=== PATIENT | male | born 1950 | race Caucasian/White ===

== ENCOUNTER → 2016-10-11 | Day surgery (SDC) | payer BC ==
[~2016-10-11] MED LIST: BUPR150T6 PO; CARV6.252 PO; CITA20TA5 PO; DOXA4TAB3 PO; FENTANYL PF 100 MCG/2 ML VIAL. IV PRN; GABA-586 PO; HYDR12.53 PO; HYDROMORPHONE 2 MG/ML VIAL. IV PRN; IBUP-1027 PO; IV RINGERS,LACTATED 1000ML 1,000 ML IV SCH; LIDOCAINE 1% 1 ML SYRINGE. ID PRN; LIDOCAINE 2% PF Vial for OR 5 ML VIAL. ONE; MORPHINE SULFATE 2 MG/ML DISP.SYRIN. IV PRN; NAPR500T3 PO; ONDANSETRON PF 4 MG/2 ML VIAL. IV PRN; PROCHLORPERAZINE 10 MG/2 ML VIAL. IV PRN; PROPOFOL 40 ML IV ONE; TEMA15CA PO
[2016-10-11 09:46] VITALS: BP 118/74
--- NOTE | 2016-10-14 13:28 | PATHOLOGY ---
PATHOLOGY REPORT * * * * * * * * FINAL DIAGNOSIS: Colon biopsy, transverse colon polyp: - Tubular adenoma. COMMENT: There is no high-grade dysplasia or evidence of malignancy. (CAROLYNM:; d/t: 10/14/16) REPORT ELECTRONICALLY SIGNED BY: Efra Hou M.D. DATE/TIME: 10/14/2016 13:28 * * * * * * * * GROSS PATHOLOGY: Received in formalin labeled "Ti Waller and transverse colon polyp," are 2 segments of coleman soft tissue measuring 0.8 x 0.4 x 0.2 and cm in aggregate dimensions and measuring 0.3 and 0.5 cm in maximum dimension. The specimen is submitted entirely in cassette A1. (TTL; 10/11/2016) INITIAL CPT CODE(S): A; 93742 Professional services performed [place] [facility] [place] [address] Technical services performed by [facility] at [address] [place] [address], [facility] [address], [place] [address]. SPECIMEN(S) RECEIVED: A.Transverse colon polyp CLINICAL HISTORY: Anemia, history of polyps PATIENT: TI WALLER /AGE: 5 1950 (Age: 65) PATIENT #: [id number] ALT CASE #: SPECIMEN COLLECTION DATE: 10/11/2016 SPECIMEN RECEIVED DATE: 10/11/2016 [facility] - [address] [place] [address] - PHONE: [phone] * * * END OF REPORT * * *
== END | disposition home or self-care (01) ==
LOC: ENDOS 08:28
PROVIDERS: ATTEND Internal Medicine Gastroenterology
DX: D12.3 Benign neoplasm of transverse colon (principal); K57.30 Diverticulosis of large intestine without perforation or abscess without bleeding; K64.8 Other hemorrhoids; K29.50 Unspecified chronic gastritis without bleeding; D50.9 Iron deficiency anemia, unspecified; J44.9 Chronic obstructive pulmonary disease, unspecified; I10 Essential (primary) hypertension; F32.9 Major depressive disorder, single episode, unspecified; D64.9 Anemia, unspecified; Z72.0 Tobacco use
CPT/HCPCS: 43235; 45385; G0500; 88305; J2704

== ENCOUNTER → 2016-11-14 | Outpatient (CLI) | payer BC ==
[2016-10-11 09:46] VITALS: BP 118/74
[~2016-11-14] MED LIST changes: -FENTANYL PF 100 MCG/2 ML VIAL. IV PRN; -HYDROMORPHONE 2 MG/ML VIAL. IV PRN; -IV RINGERS,LACTATED 1000ML 1,000 ML IV SCH; -LIDOCAINE 1% 1 ML SYRINGE. ID PRN; -LIDOCAINE 2% PF Vial for OR 5 ML VIAL. ONE; -MORPHINE SULFATE 2 MG/ML DISP.SYRIN. IV PRN; -ONDANSETRON PF 4 MG/2 ML VIAL. IV PRN; -PROCHLORPERAZINE 10 MG/2 ML VIAL. IV PRN; -PROPOFOL 40 ML IV ONE
[2016-11-14 17:31] LABS: BASO % 0 % (0-3); EOS % 2 % (0-3); HEMATOCRIT 42.7 % (39.0-53.0); LYMPH # 0.9 x10^3/uL (1.0-4.8); LYMPH % 8 % (24-48); MEAN CORPUSCULAR HEMOGLOBIN 28 pg (25-35); MEAN CORPUSCULAR HGB CONC 33 g/dL (31-37); MEAN CORPUSCULAR VOLUME 84 fL (79-100); MONO % 11 % (0-9); NEUT % 79 % (31-73); PLATELET COUNT 276 x10^3/uL (140-400); RED BLOOD COUNT 5.08 x10^6/uL (4.30-5.70); RED CELL DISTRIBUTION WIDTH 32.4 % (11.5-14.5)
[2016-11-14 17:42] LABS: ALBUMIN/GLOBULIN RATIO 0.7 (1.0-1.7); CREATININE 0.9 mg/dL (0.7-1.3); GFR 83.9; POTASSIUM 3.9 mmol/L (3.5-5.1); TOTAL BILIRUBIN 0.5 mg/dL (0.2-1.0); TOTAL PROTEIN 7.4 g/dL (6.4-8.2)
[2016-11-14 17:50] LABS: FREE T4 1.55 ng/dL (0.76-1.46)
[2016-11-14 18:06] LABS: PLT ESTIMATE ADEQUATE (ADEQUATE)
[2016-11-14 18:10] LABS: ANISOCYTOSIS MARKED
[2016-11-14 18:12] LABS: POIKILOCYTOSIS SLIGHT; POLYCHROMASIA SLIGHT
--- NOTE | 2016-11-15 07:25 | RAD ---
Chest, 2 views, 11/14/2016: History: Weight loss No previous chest radiographs are available at this time for comparison purposes. The heart is of normal size. The pulmonary vascularity is normal. There are patchy infiltrates in the right upper lobe. There is a small irregular parenchymal opacity in the left base in a retrocardiac location. There is flattening of the hemidiaphragm suggesting hyperexpansion due to COPD. An emphysematous bulla is noted anteriorly in the upper chest on the lateral view. No significant pleural fluid is seen. Mild spurring is evident in the spine. IMPRESSION: 1. Emphysema. 2. Right upper lobe infiltrate suggesting pneumonia. 3. Small irregular left basilar pulmonary opacity which may be due to pneumonia, scarring or a pulmonary neoplasm. 4. Comparison with previous chest radiographs if available would be helpful. CT scanning of the chest should be considered for further evaluation.
== END | disposition home or self-care (01) ==
LOC: RAD 16:46
PROVIDERS: ATTEND Internal Medicine Gastroenterology
DX: J43.9 Emphysema, unspecified (principal); R05 Cough; R63.4 Abnormal weight loss
CPT/HCPCS: 36415; 71020; 80053; 84439; 84443; 85007; 85027

== ENCOUNTER → 2016-12-04 | Outpatient (CLI) | payer BC ==
[2016-10-11 09:46] VITALS: BP 118/74
--- NOTE | 2016-12-04 11:58 | RAD ---
Indication abnormal chest x-ray. Axial images through the chest were obtained. No IV contrast was administered. Note is made of the plain film examination 11/14/2016 and the accompanying report. Imaging through the upper abdomen shows no acute finding. There is a low-density subcentimeter mass in the right lobe of liver. This likely reflects an incidental cyst. There are 2 well-defined masses seen associated with the left kidney each measuring approximately 2.5 cm in greatest dimension. The more dorsal mass almost certainly represents a cyst. The more ventral mass is hyperdense and may reflect a complicated or hyperdense cyst. Ultrasound is suggested for additional evaluation. A solid mass associated with the left kidney is not excluded. There is coronary artery calcification. There is no significant hilar adenopathy. There is mild mediastinal adenopathy. Definite pathologic mediastinal adenopathy is not seen. Blebs or bulla are seen in both lungs. There is slight pleural-parenchymal scarring in the right upper lobe. A dominant soft tissue mass is not seen in either lung. There is some pleural-parenchymal scarring at the left lung base accounting for the findings on plain film. An acute finding in the chest is not seen. IMPRESSION: Chronic changes in the chest. No dominant soft tissue mass or acute finding in the chest seen. At least 2 well defined masses associated with the left kidney. There are not completely characterized on the CT examination. Ultrasound is suggested for additional evaluation. PQRS Compliance Statement: One or more of the following individualized dose reduction techniques were utilized for this examination: 1. Automated exposure control 2. Adjustment of the mA and/or kV according to patient size 3. Use of iterative reconstruction technique
== END | disposition home or self-care (01) ==
LOC: CT 10:53
PROVIDERS: ATTEND Physician Assistant
DX: N28.89 Other specified disorders of kidney and ureter (principal)
CPT/HCPCS: 71250

== ENCOUNTER → 2017-04-10 | Outpatient (CLI) | payer BC ==
[2016-10-11 09:46] VITALS: BP 118/74
[~2017-04-10] MED LIST changes: -NAPR500T3 PO; +NAPR500T4 PO
--- NOTE | 2017-04-10 13:33 | KCIC ---
PQRS Compliance Statement: One or more of the following individualized dose reduction techniques were utilized for this examination: 1. Automated exposure control 2. Adjustment of the mA and/or kV according to patient size 3. Use of iterative reconstruction technique CT abdomen pelvis without contrast:04/10/2017 12:30 PM Indication: 66 years old Male. Epigastric pain. Weight loss, anemia and fatigue. Smoking history. Comparison Studies: None. Technique: Multiple axial images of the abdomen and pelvis were obtained. No intravenous contrast was administered. Coronal and sagittal reformats are provided. Findings: The lack of intravenous contrast limits evaluation of the solid abdominal organs. LUNG BASES: Lung bases are clear. Heart size is within normal limits. ABDOMEN: LIVER: There is a 9 mm hypodense lesion in the right hepatic lobe compatible with a simple cyst. No suspicious hepatic lesions are identified. SPLEEN: Unremarkable. ADRENAL GLANDS: Within normal limits. PANCREAS: Unremarkable. GALLBLADDER: No calcified gallstones. BILE DUCTS: Normal caliber. VASCULATURE: There are mild atherosclerotic changes of the abdominal aorta. There is ectasia of infrarenal abdominal aorta measuring 2.4 x 1.9 cm. RETROPERITONEUM: Within normal limits. KIDNEYS: There is a 2.4 x 2.2 cm mildly hyperdense mass arising from the midpole of the left kidney anteriorly. There is a 2.8 x 2.4 cm simple cyst exophytic from the superior pole of the left kidney. There is a 2.4 x 1.9 cm exophytic cyst arising from the midpole the left kidney. There is a endophytic 1.2 x 0.7 cm cyst in the midpole the right kidney. There is a hypodense cystic lesion arising from the inferior pole the right kidney measuring 1.4 x 1.2 cm, indeterminate. BOWEL: Nondilated without adjacent inflammatory changes. Appendix is normal in appearance. There is diverticulosis coli. No evidence for diverticulitis. PERITONEUM: No ascites. No fluid collection. ABDOMINAL WALL: Within normal limits. PELVIS: PELVIC ORGANS: No pelvic masses. URINARY BLADDER: Within normal limits. LYMPH NODES: No lymphadenopathy in the abdomen or pelvis. BONES: No acute fracture. No suspicious osseous lesions are identified. IMPRESSION: 1. There is an indeterminate mildly hyperdense mass involving the anterior mid pole of the left kidney measuring 2.4 x 2.2 cm. This may represent a solid renal mass such as renal cell carcinoma versus a cyst complicated by hemorrhage or protein. Further evaluation with renal mass protocol CT is recommended. There is an additional indeterminate mass arising from the inferior pole of the right kidney measuring 1.4 x 1.2 cm. 2. Bilateral simple appearing renal cysts, as detailed above. 3. No pathologically enlarged lymph nodes identified in the abdomen or pelvis. 4. Diverticulosis without adjacent inflammatory changes to suggest diverticulitis. 5. Mild to moderate atherosclerotic calcification of the abdominal aorta with infrarenal abdominal aortic ectasia. Electronically signed by: Lana Jordan MD (04/10/2017 1:27 PM) [place] [id number]
== END | disposition home or self-care (01) ==
LOC: KCIC CT 12:30
PROVIDERS: ATTEND Physician Assistant
DX: N28.1 Cyst of kidney, acquired (principal); N28.89 Other specified disorders of kidney and ureter; I77.811 Abdominal aortic ectasia; I70.0 Atherosclerosis of aorta; K57.90 Diverticulosis of intestine, part unspecified, without perforation or abscess without bleeding; D64.9 Anemia, unspecified; R63.4 Abnormal weight loss; R53.83 Other fatigue; Z87.891 Personal history of nicotine dependence
CPT/HCPCS: 74176

== ENCOUNTER → 2017-04-17 | Outpatient (CLI) | payer BC ==
[2016-10-11 09:46] VITALS: BP 118/74
--- NOTE | 2017-04-17 14:33 | KCIC ---
Examination: Ultrasound kidneys HISTORY: History of abnormal CT scan COMPARISON: None available FINDINGS: The right kidney measures 11.0 x 5.3 x 5.5 cm. There is a cystic structure identified measuring 9 mm identified in the lower pole of the right kidney probably a cyst. The left kidney measures 11.4 x 5.6 x 5.2 cm There is a septated questionable cystic structure measuring 4.7 cm identified in the left kidney. There is a complex exophytic cyst measuring 2.8 cm identified in the superior pole the left kidney. There is a 2.1 cm exophytic complex cystic structure identified in the midpole the left kidney. There is focal thickening of the urinary bladder wall with a hyperechoic region measuring 2.3 cm in the right anterolateral wall. The prostate is enlarged measuring 3.7 x 3.9 x 5.9 cm. IMPRESSION: 1. Complex appearing cystic echogenicities identified in the left kidney. Recommend CT urogram for further evaluation. If IV and enteric contrast cannot be administered 10 MRI may be useful for further evaluation. 2. Focal hyperechoic thickened appearance of the the urinary bladder without vascular flow, nonspecific, could be mass or thrombus. Cystoscopic evaluation is recommended. 3. Probable right renal cyst. 4. Prostatomegaly. Electronically signed by: Ciro Nye MD (04/17/2017 2:30 PM) [id number]
== END | disposition home or self-care (01) ==
LOC: KCIC US 10:25
PROVIDERS: ATTEND Physician Assistant
DX: N40.0 Benign prostatic hyperplasia without lower urinary tract symptoms (principal)
CPT/HCPCS: 76770

== ENCOUNTER → 2017-05-24 | Outpatient (CLI) | payer BC ==
[2016-10-11 09:46] VITALS: BP 118/74
== END | disposition home or self-care (01) ==
LOC: SLPLAB 18:30
PROVIDERS: ATTEND Physician Assistant
DX: J44.9 Chronic obstructive pulmonary disease, unspecified (principal); G47.33 Obstructive sleep apnea (adult) (pediatric); R06.83 Snoring
CPT/HCPCS: 95810

== ENCOUNTER 2017-07-05 11:35 | Inpatient (IN) | payer BC ==
[2017-07-05 12:24] LABS: BASO # 0.1 x10^3/uL (0.0-0.2); BASO % 1 % (0-3); EOS % 0 % (0-3); HEMATOCRIT 42.6 % (39.0-53.0); HEMOGLOBIN 14.3 g/dL (13.0-17.5); LYMPH # 0.8 x10^3/uL (1.0-4.8); LYMPH % 5 % (24-48); MEAN CORPUSCULAR HEMOGLOBIN 30 pg (25-35); MEAN CORPUSCULAR HGB CONC 34 g/dL (31-37); MEAN CORPUSCULAR VOLUME 91 fL (79-100); MONO % 6 % (0-9); NEUT # 15.5 x10^3uL (1.8-7.7); NEUT % 89 % (31-73); PLATELET COUNT 300 x10^3/uL (140-400); RED BLOOD COUNT 4.69 x10^6/uL (4.30-5.70); RED CELL DISTRIBUTION WIDTH 14.2 % (11.5-14.5); WHITE BLOOD COUNT 17.4 x10^3/uL (4.0-11.0)
[2017-07-05 12:25] LABS: ADD MAN DIFF? YES
[2017-07-05 12:38] LABS: INR 0.9 (0.8-1.1); PROTHROMBIN TIME PATIENT 11.6 SEC (11.7-14.0)
[2017-07-05] MEDS: IV NORMAL SALINE 1000ML BAG 1,000 ML IV ×3 (12:41→14:45)
[2017-07-05] MEDS: fentaNYL PF VIAL 100 MCG/2 ML VIAL IV ×2 (12:42→18:00)
[2017-07-05 12:44] LABS: ANION GAP 12 (6-14); BLOOD UREA NITROGEN 12 mg/dL (8-26); CALCIUM 8.9 mg/dL (8.5-10.1); CARBON DIOXIDE 26 mmol/L (21-32); CHLORIDE 95 mmol/L (98-107); CREATININE 0.9 mg/dL (0.7-1.3); GFR 83.9; GLUCOSE 154 mg/dL (70-99); POTASSIUM 3.7 mmol/L (3.5-5.1); SODIUM 133 mmol/L (136-145)
[2017-07-05 12:46] LABS: INFLUENZA A PATIENT NEGATIVE (NEGATIVE); INFLUENZA B PATIENT NEGATIVE (NEGATIVE); OBC FLU VALID
[2017-07-05 12:50] LABS: ALBUMIN 3.7 g/dL (3.4-5.0); ALK PHOS 77 U/L (46-116); ALT (SGPT) 18 U/L (16-63); AST (SGOT) 15 U/L (15-37); DIRECT BILIRUBIN 0.1 mg/dL (0.0-0.2); LIPASE 70 U/L (73-393); MAGNESIUM 1.7 mg/dL (1.8-2.4); TOTAL BILIRUBIN 0.3 mg/dL (0.2-1.0); TOTAL PROTEIN 7.4 g/dL (6.4-8.2)
[2017-07-05 12:57] LABS: THYROID STIM HORMONE (TSH) 1.703 uIU/mL (0.358-3.74)
[2017-07-05 12:59] LABS: NT-PRO BNP 194 pg/mL (0-124); TROPONINI < 0.017 ng/mL (0.000-0.055)
[2017-07-05 12:59] LABS: CKMB MASS < 0.5 ng/mL (0.0-3.6); CREATINE KINASE 65 U/L (39-308)
[2017-07-05 13:01] LABS: % BANDS 28 % (0-9); % LYMPHS 4 % (24-48); % MONOS 6 % (0-10); % SEGS 62 % (35-66)
[2017-07-05 13:02] LABS: PLT ESTIMATE ADEQUATE (ADEQUATE); TARGET CELLS FEW
[2017-07-05] MEDS: IOHEXOL 300 MG/ML 100ML VIAL. IV (13:22)
[2017-07-05] MEDS ORDERED: CONTRAST GIVEN MC (13:30)
[2017-07-05 14:14] LABS: LACTIC ACID 1.2 mmol/L (0.4-2.0)
[2017-07-05 14:26] LABS: BILIRUBIN,URINE NEGATIVE (NEG); CLARITY,URINE CLEAR; COLOR,URINE YELLOW; GLUCOSE,URINE NEGATIVE (NEG); NITRITE,URINE NEGATIVE (NEG); PH,URINE 6.5; PROTEIN,URINE 30 mg/dL (NEG-TRACE); UROBILINOGEN,URINE 0.2 mg/dL (0.2 mg/dL)
[2017-07-05] MEDS ORDERED: ONDANSETRON PF 4 MG/2 ML VIAL. IV (14:30)
[2017-07-05] MEDS ORDERED: levOFLOXacin PER PHARMACY. MC (14:30)
[2017-07-05] MEDS: ACETAMINOPHEN 500 MG TABLET PO (14:32)
[2017-07-05 14:33] LABS: RBC,URINE >40 /HPF (0-2); SQUAMOUS EPITHELIAL CELL,UR MOD /LPF; WBC,URINE OCC /HPF (0-4)
[2017-07-05 14:36] LABS: BARBITURATES NEG (NEG); BENZODIAZEPINES NEG (NEG); CANNABINOIDS POS (NEG); COCAINE NEG (NEG); METHADONE NEG (NEG); OPIATES NEG (NEG); PHENCYCLIDINE NEG (NEG)
[2017-07-05 14:38] LABS: AMPHETAMINE/METHAMPHETAMINE NEG (NEG); ETHANOL, URINE NEG (NEG)
[2017-07-05] MEDS: predniSONE 10 MG TABLET PO (15:02)
[2017-07-05] MEDS: NICOTINE 21MG PATCH. TD (15:03)
[2017-07-05] MEDS: IPRATRPIUM/ALBUTEROL 0.5/2.5MG 3 ML NEBU. NEB ×2 (18:15→22:20)
[2017-07-05] MEDS ORDERED: IPRATRPIUM/ALBUTEROL 0.5/2.5MG 3 ML NEBU. NEB (20:00)
[2017-07-05] MEDS ORDERED: INFLUENZA VAX SCREEN BY RX. MC (20:30)
[2017-07-05] MEDS: traZODone 100 MG TABLET. PO ×2 (21:00→21:35)
[2017-07-05] MEDS: LACTOBACILLUS RHAMNOSUS GG 1 CAPSULE. PO (21:36)
[2017-07-05] MEDS: hydrOXYzine PAMOATE 25 MG CAPSULE PO (21:36)
[2017-07-05] MEDS: GABAPENTIN 300 MG CAPSULE. PO (21:36)
[2017-07-05 21:40] LABS: TROPONINI < 0.017 ng/mL (0.000-0.055)
[2017-07-05] MEDS: BUDESONIDE 0.5 MG/2 ML NEBU. NEB (22:20)
[2017-07-06 05:31] LABS: ADD MAN DIFF? NO
[2017-07-06 06:05] LABS: BASO % 0 % (0-3); EOS % 0 % (0-3); HEMATOCRIT 39.4 % (39.0-53.0); LYMPH # 0.7 x10^3/uL (1.0-4.8); LYMPH % 4 % (24-48); MEAN CORPUSCULAR HEMOGLOBIN 31 pg (25-35); MEAN CORPUSCULAR HGB CONC 33 g/dL (31-37); MEAN CORPUSCULAR VOLUME 94 fL (79-100); MONO # 0.9 x10^3/uL (0.0-1.1); MONO % 5 % (0-9); NEUT # 15.9 x10^3uL (1.8-7.7); NEUT % 91 % (31-73); PLATELET COUNT 282 x10^3/uL (140-400); RED BLOOD COUNT 4.21 x10^6/uL (4.30-5.70); RED CELL DISTRIBUTION WIDTH 14.7 % (11.5-14.5); WHITE BLOOD COUNT 17.5 x10^3/uL (4.0-11.0)
[2017-07-06 06:50] LABS: ANION GAP 16 (6-14); BLOOD UREA NITROGEN 10 mg/dL (8-26); CALCIUM 8.2 mg/dL (8.5-10.1); CARBON DIOXIDE 24 mmol/L (21-32); CHLORIDE 99 mmol/L (98-107); CREATININE 0.8 mg/dL (0.7-1.3); GFR 96.1; GLUCOSE 115 mg/dL (70-99); POTASSIUM 3.1 mmol/L (3.5-5.1); SODIUM 139 mmol/L (136-145)
[2017-07-06 06:55] LABS: TROPONINI < 0.017 ng/mL (0.000-0.055)
[2017-07-06] MEDS ORDERED: PANTOPRAZOLE 40 MG TABLET.DR. PO (07:30)
[2017-07-06] MEDS: PANTOPRAZOLE 40 MG TABLET.DR. PO (08:01)
[2017-07-06] MEDS: CARVEDILOL 6.25 MG TABLET. PO ×2 (08:02→17:46)
[2017-07-06] MEDS: BUDESONIDE 0.5 MG/2 ML NEBU. NEB ×2 (08:29→19:49)
[2017-07-06] MEDS: IPRATRPIUM/ALBUTEROL 0.5/2.5MG 3 ML NEBU. NEB ×4 (08:29→23:38)
[2017-07-06] MEDS ORDERED: NON FORMULARY ITEM (Tiotropium Bromide (Spiriva) 1 CAP) IH (09:00)
[2017-07-06] MEDS ORDERED: NON FORMULARY ITEM (Fluticasone/Vilanterol (Breo Ellipta 100-25 Mcg Inh) 1 PUFF) IH (09:00)
[2017-07-06] MEDS: NICOTINE 21MG PATCH. TD (09:13)
[2017-07-06] MEDS: hydrOXYzine PAMOATE 25 MG CAPSULE PO ×3 (09:14→20:45)
[2017-07-06] MEDS: GABAPENTIN 300 MG CAPSULE. PO ×3 (09:14→20:45)
[2017-07-06] MEDS: LACTOBACILLUS RHAMNOSUS GG 1 CAPSULE. PO ×2 (09:14→20:46)
[2017-07-06] MEDS: DULoxetine HCL 30 MG CAPSULE.DR PO (09:14)
[2017-07-06] MEDS: hydroCHLOROthiazide 12.5 MG CAPSULE PO (09:14)
[2017-07-06] MEDS: buPROPion XL 150 MG TAB.ER.24H. PO (09:14)
[2017-07-06] MEDS: FLU VACC QS2017-18 (36MOS+)/PF 0.5 ML SYRINGE. VAX IM (09:18)
[2017-07-06] MEDS: cefTRIAXone IV Push 1 GM VIAL. IVP (14:45)
[2017-07-06] MEDS: traZODone 100 MG TABLET. PO ×2 (20:46→20:47)
[2017-07-07 05:25] LABS: ADD MAN DIFF? NO
[2017-07-07 05:29] LABS: BASO % 0 % (0-3); EOS % 0 % (0-3); HEMATOCRIT 35.6 % (39.0-53.0); HEMOGLOBIN 11.6 g/dL (13.0-17.5); LYMPH # 1.5 x10^3/uL (1.0-4.8); LYMPH % 13 % (24-48); MEAN CORPUSCULAR HEMOGLOBIN 30 pg (25-35); MEAN CORPUSCULAR HGB CONC 33 g/dL (31-37); MEAN CORPUSCULAR VOLUME 92 fL (79-100); MONO % 8 % (0-9); NEUT # 9.8 x10^3uL (1.8-7.7); NEUT % 79 % (31-73); PLATELET COUNT 278 x10^3/uL (140-400); RED BLOOD COUNT 3.86 x10^6/uL (4.30-5.70); RED CELL DISTRIBUTION WIDTH 14.1 % (11.5-14.5); WHITE BLOOD COUNT 12.4 x10^3/uL (4.0-11.0)
[2017-07-07] MEDS: IPRATRPIUM/ALBUTEROL 0.5/2.5MG 3 ML NEBU. NEB ×3 (08:28→23:20)
[2017-07-07] MEDS: BUDESONIDE 0.5 MG/2 ML NEBU. NEB (08:29)
[2017-07-07] MEDS ORDERED: TEMAZEPAM 15 MG CAPSULE PO (08:30)
[2017-07-07] MEDS: buPROPion XL 150 MG TAB.ER.24H. PO (08:49)
[2017-07-07] MEDS: hydrOXYzine PAMOATE 25 MG CAPSULE PO ×3 (08:49→21:00)
[2017-07-07] MEDS: GABAPENTIN 300 MG CAPSULE. PO ×3 (08:49→20:59)
[2017-07-07] MEDS: PANTOPRAZOLE 40 MG TABLET.DR. PO (08:49)
[2017-07-07] MEDS: LACTOBACILLUS RHAMNOSUS GG 1 CAPSULE. PO ×2 (08:49→21:00)
[2017-07-07] MEDS: CARVEDILOL 6.25 MG TABLET. PO ×2 (08:50→18:14)
[2017-07-07] MEDS: DULoxetine HCL 30 MG CAPSULE.DR PO (08:50)
[2017-07-07] MEDS: CITALOPRAM 20 MG TABLET. PO (08:57)
[2017-07-07] MEDS: ACETAMINOPHEN 325 MG TABLET. PO ×4 (08:57→21:00)
[2017-07-07] MEDS: hydroCHLOROthiazide 12.5 MG CAPSULE PO (09:00)
[2017-07-07 10:59] LABS: PROSTATE SPECIFIC ANTIGEN 11.21 ng/mL (0.00-4.00)
[2017-07-07] MEDS: methylPREDNISolone SOD SUCC PF 40 MG/ML VIAL. IV ×2 (14:03→21:01)
[2017-07-07] MEDS: PNEUMOC CONJ VACC 23-VALENT 0.5 ML VIAL. VAX IM (14:13)
[2017-07-07] MEDS: traZODone 100 MG TABLET. PO (20:59)
[2017-07-07] MEDS: DOXAZOSIN MESYLATE 4 MG TABLET. PO (21:00)
[2017-07-08] MEDS: IPRATRPIUM/ALBUTEROL 0.5/2.5MG 3 ML NEBU. NEB (07:46)
[2017-07-08] MEDS ORDERED: AZITHROMYCIN 250 MG TABLET. PO (08:00)
[2017-07-08] MEDS: LACTOBACILLUS RHAMNOSUS GG 1 CAPSULE. PO (09:40)
[2017-07-08] MEDS: predniSONE 20 MG TABLET PO (09:40)
[2017-07-08] MEDS: CARVEDILOL 6.25 MG TABLET. PO (09:41)
[2017-07-08] MEDS: hydroCHLOROthiazide 12.5 MG CAPSULE PO (09:41)
[2017-07-08] MEDS: CITALOPRAM 20 MG TABLET. PO (09:41)
[2017-07-08] MEDS: buPROPion XL 150 MG TAB.ER.24H. PO (09:41)
[2017-07-08] MEDS: ACETAMINOPHEN 325 MG TABLET. PO (09:41)
[2017-07-08] MEDS: GABAPENTIN 300 MG CAPSULE. PO (09:41)
[2017-07-08] MEDS: DULoxetine HCL 30 MG CAPSULE.DR PO (09:41)
[2017-07-08] MEDS: hydrOXYzine PAMOATE 25 MG CAPSULE PO (09:41)
[2017-07-08] MEDS: PANTOPRAZOLE 40 MG TABLET.DR. PO (09:41)
== END 2017-07-08 11:29 | disposition home or self-care (01) | DRG 871 ==
LOC: ER 11:35 → 5 SOUTH 14:15
DX: A41.9 Sepsis, unspecified organism (principal); J15.9 Unspecified bacterial pneumonia; C61 Malignant neoplasm of prostate; F17.210 Nicotine dependence, cigarettes, uncomplicated; I10 Essential (primary) hypertension; F12.90 Cannabis use, unspecified, uncomplicated; R31.0 Gross hematuria
CPT/HCPCS: 36415; 71045; 71260; 74177; 80048; 80076; 80307; 81001; 82553; 83605; 83690; 83735; 83880; 84443; 84484; 85007; 85025; 85610; 87040; 87804; 87804-59; 90732; 93005; 94640; 96361; 96365; 96368; 96375; 99285-25; G0103; J0690; J0696; J1956; J2920; J3010; J7030; J7512; J7620; J7626; Q0177; Q9967

== ENCOUNTER → 2017-09-04 | Outpatient (CLI) | payer BC | END | disposition home or self-care (01) | LOC: NM 10:00 | DX: C61 Malignant neoplasm of prostate (principal) | CPT/HCPCS: 78306; 96374; A9503 ==

== ENCOUNTER → 2017-09-24 | Outpatient (CLI) | payer BC | END | disposition home or self-care (01) | LOC: US 10:05 | DX: C61 Malignant neoplasm of prostate (principal); I10 Essential (primary) hypertension; J44.9 Chronic obstructive pulmonary disease, unspecified; K21.9 Gastro-esophageal reflux disease without esophagitis; F32.9 Major depressive disorder, single episode, unspecified; C80.1 Malignant (primary) neoplasm, unspecified | CPT/HCPCS: 55876; 77387 ==

== ENCOUNTER → 2017-09-29 | Outpatient (CLI) | payer BC | END | disposition home or self-care (01) | LOC: RAD 11:15 | DX: J43.8 Other emphysema (principal); R91.8 Other nonspecific abnormal finding of lung field | CPT/HCPCS: 71046 ==

== ENCOUNTER → 2017-10-08 | Outpatient (CLI) | payer BC | END | disposition home or self-care (01) | LOC: KCIC CT 12:18 | DX: R05 Cough (principal); R91.1 Solitary pulmonary nodule; R06.02 Shortness of breath; J44.9 Chronic obstructive pulmonary disease, unspecified; Z87.01 Personal history of pneumonia (recurrent); Z87.891 Personal history of nicotine dependence | CPT/HCPCS: 71250 ==

== ENCOUNTER → 2018-02-10 | Outpatient (CLI) | payer BC ==
[2017-07-08 10:30] VITALS: BP 126/91
[~2018-02-10] MED LIST changes: +ACET160S PO; +ACET325T9 PO; +BREO ELLIPTA 11 EACH IH; -CITA20TA5 PO; +CITA20TA6 PO; +DULO60CA6 PO; +HYDR25TA PO; +NAPR-514 PO; -NAPR500T4 PO; +OMEP40CA5 PO; +PANT40TA5 PO; +TAMS0.4C97 PO; +TIOT18CA IH; +TRAZ-86 PO
--- NOTE | 2018-02-10 14:20 | RAD ---
EXAM: CT chest without IV contrast CLINICAL HISTORY: LUNG NODULE COMPARISON: 10/08/2017, 07/05/2017 TECHNIQUE: CT of the chest without intravenous contrast. Coronal and sagittal reformatted images were generated. PQRS compliance Statement One or more of the following individualized dose reduction techniques were utilized for this study: 1. Automated exposure control 2. Adjustment of the mA and/or kV according to patient size 3. Use of iterative reconstruction technique FINDINGS: Lack of intravenous contrast limits evaluation of solid organs, vasculature, and lymph nodes. The heart is enlarged. Coronary artery calcifications are seen. No pericardial effusion. Evaluation for mediastinal and hilar lymphadenopathy is limited on this noncontrast exam. Within these constraints no definite mediastinal or hilar lymphadenopathy by size criteria. Prominent mediastinal pretracheal lymph node measures 1.8 x 0.8 cm. No axillary lymphadenopathy. No pleural effusion or pneumothorax. Bilateral emphysematous changes are seen. Lingular patchy and linear opacities likely atelectasis/scarring. A 4 mm left upper lobe lung nodule is seen, previously 7 mm. Additional previously seen 4 mm lung nodules are grossly stable. Some of the 2-3 mm lung nodules previously seen have since resolved. The previously seen 5 mm left upper lobe lung nodule now measures 3 mm. Hypodense lesions within the liver are grossly unremarkable. Multiple left renal lesions are seen, grossly stable in size and incompletely assessed on this noncontrast exam. Bones: Multilevel degenerative changes of the spine are seen. No definite aggressive osseous lesion is identified. IMPRESSION: 1. The previously seen left lung nodules are grossly stable to decreased in size, recommend follow-up in 6 months. 2. Multiple renal and hepatic lesions are again seen. Electronically signed by: Franck Lewis MD (02/10/2018 2:16 PM) [facility]
== END | disposition home or self-care (01) ==
LOC: CT 11:56
PROVIDERS: ATTEND Radiology Radiation Oncology
DX: R91.8 Other nonspecific abnormal finding of lung field (principal); K76.9 Liver disease, unspecified; J43.9 Emphysema, unspecified; I25.10 Atherosclerotic heart disease of native coronary artery without angina pectoris; I51.7 Cardiomegaly; Z87.891 Personal history of nicotine dependence
CPT/HCPCS: 71250

== ENCOUNTER → 2018-08-11 | Outpatient (CLI) | payer BC ==
[2017-07-08 10:30] VITALS: BP 126/91
[~2018-08-11] MED LIST changes: +CARV6.2511 PO; -CARV6.252 PO; -GABA-586 PO; +GABA300C18 PO; -HYDR12.53 PO; +HYDR12.575 PO
--- NOTE | 2018-08-11 15:43 | RAD ---
Examination: CT CHEST WO CONTRAST History: Pulmonary nodules Comparison/Correlation: 02/10/2018 CT chest without contrast, 10/08/2017 CT chest without contrast, 07/05/2017 CT chest abdomen pelvis with contrast, 12/04/2016 CT chest without contrast Findings: Axial images of chest were obtained without contrast. Sagittal and coronal reformatted images were provided Centrilobular emphysema is present. No enlarged thoracic lymph nodes. Lingular linear atelectasis or scarring is present. No suspicious pulmonary nodule or mass lesion. There is a punctate nodule involving the right upper lobe on axial image 85 of series 2 and this has remained stable. It is noncalcified. No pleural or pericardial effusion. No pneumothorax. Left renal cysts are present. Hyperdense lesion at the left renal upper pole anteriorly likely representing a hemorrhagic cyst has remained stable. Impression: No suspicious pulmonary nodule. No infiltrate. Emphysema. Electronically signed by: Narayan Read MD (08/11/2018 3:40 PM) [id number]
== END | disposition home or self-care (01) ==
LOC: CT 12:12
PROVIDERS: ATTEND Radiology Radiation Oncology
DX: J43.2 Centrilobular emphysema (principal); N28.1 Cyst of kidney, acquired; R91.1 Solitary pulmonary nodule
CPT/HCPCS: 71250

== ENCOUNTER → 2019-02-19 | Outpatient (CLI) | payer BC, MEDICAID ==
[2017-07-08 10:30] VITALS: BP 126/91
[~2019-02-19] MED LIST changes: -PANT40TA5 PO; +PANT40TA77 PO
--- NOTE | 2019-02-19 12:55 | RAD ---
EXAM: Chest CT without intravenous contrast. HISTORY: Chronic cough. Greater than 50 pack year smoking history. Weight loss. TECHNIQUE: Computed tomographic images of the chest were obtained without contrast. Multiplanar reformatting was performed. *One or more of the following individualized dose reduction techniques were utilized for this examination: 1. Automated exposure control. 2. Adjustment of the mA and/or kV according to patient size. 3. Use of iterative reconstruction technique. COMPARISON: 08/11/2018, 02/10/2018, 10/08/2017. FINDINGS: There is bilateral upper lobe predominant bullous emphysema. There is no pneumothorax or pleural effusion. There is no infiltrate. There is a 3 mm nodule within the posterior left upper lobe (series 3, image 24), corresponding with location of a spiculated nodule measuring 7 mm on the study dated 10/08/2017. There is faint subcentimeter groundglass opacity within the left upper lobe (series 3, image 18), corresponding with location of a 7 mm [address]ule on the CT dated 10/08/2017. There is a 5 mm nodule within the lateral right upper lobe (series 3, image 29), minimally decreased compared to the prior study dated 10/08/2017. The remainder of the previously demonstrated nodules and groundglass opacities demonstrate no clear correlate on the current exam. No new nodule is seen. The heart is normal in size. There is coronary artery atherosclerosis. There are stable nonspecific mediastinal and hilar lymph nodes. These are not pathologically enlarged. There is stable anterior pericardial thickening or fluid. There is lingular and right middle lobe pleural parenchymal scarring or atelectasis. There are multiple left renal cysts. There is a 2.5 cm lesion within the upper pole the left kidney with attenuation greater than simple fluid, likely a hemorrhagic cyst. There is adrenal gland thickening without a discrete nodule. There is no suspicious osseous lesion. There is a 1.5 cm hypodense lesion within the right hepatic lobe. IMPRESSION: 1. Tiny bilateral pulmonary nodules, the largest of which measures 5 mm within the lateral right upper lobe. These are decreased in size and number compared to a CT dated 10/08/2017, favoring a benign postinfectious or postinflammatory etiology. No new nodule is seen. 2. Bullous emphysema. 3. Multiple right renal cysts, one of which within the upper pole demonstrates attenuation greater than simple fluid and may be a hemorrhagic cyst. These are stable or decreased in size compared to prior studies. 4. Stable small hypodense lesion within the right hepatic lobe. There are additional hypodense lesions on prior studies which demonstrate no clear correlate on the current exam, possibly obscured due to the absence of contrast. In the absence of known malignancy, these are likely cysts or hemangiomas. Fleischner Society recommendations (Radiology 2017): SOLID NODULES Solitary solid nodule <6 mm - low-risk patient: no routine follow-up required - high-risk patient: optional CT at 12 months (particularly with suspicious nodule morphology and/or upper lobe location) Solitary solid nodule 6-8 mm - low-risk patient: CT at 6-12 months, then consider CT at 18-24 months - high risk patient: CT at 6-12 months, then if persistent CT at 18-24 months Solitary solid nodule >8 mm - consider CT at 3 months, PET/CT, or tissue sampling Multiple solid nodules <6 mm - low-risk patient: no routine follow-up required - high-risk patient: optional CT at 12 months Multiple solid nodules >6 mm - low-risk patient: CT at 3-6 months, then consider CT at 18-24 months - high risk patient: CT at 3-6 months, then if persistent CT at 18-24 months SUBSOLID NODULES Solitary ground glass nodule <6 mm - no routine follow-up required Solitary ground glass nodule > or = 6 mm - CT at 6-12 months, then if persistent CT every 2 years until 5 years Solitary part solid nodule > or = 6mm - CT at 3-4 months, the if persistent and solid component remains <6 mm, annual CT until 5 years Multiple subsolid nodules <6 mm - CT at 3-6 months, then if stable consider CT at 2 and 4 years in high risk patients Multiple subsolid nodules > or = 6 mm - CT at 3-6 months, then subsequent management based on the most suspicious nodule(s) Electronically signed by: Munira Trivedi MD (02/19/2019 12:52 PM) [place] [id number]
== END | disposition home or self-care (01) ==
LOC: CT 12:00
PROVIDERS: ATTEND Family Medicine
DX: J43.8 Other emphysema (principal); R91.8 Other nonspecific abnormal finding of lung field; I25.10 Atherosclerotic heart disease of native coronary artery without angina pectoris; N28.1 Cyst of kidney, acquired; K76.9 Liver disease, unspecified; Z87.891 Personal history of nicotine dependence
CPT/HCPCS: 71250

== ENCOUNTER 2019-04-18 10:23 | Emergency (ER) | payer MEDICARE, MEDICAID ==
[~2019-04-18] VITALS: Ht 175.3 cm; Wt 57.2 kg
[~2019-04-18 10:23] MED LIST changes: +OMEP40CA45 PO; -OMEP40CA5 PO
[2019-04-18 11:15] VITALS: BP 161/87
--- NOTE | 2019-04-18 11:21 | PHYS DOC ---
Past Medical History Past Medical History: Arrhythmia, Cancer, Hypertension, Other Additional Past Medical Histor: PROSTATE CANCER (JAN SANDY APRN) Past Surgical History: No Surgical History (JAN SANDY APRN) Alcohol Use: Occasionally Drug Use: None (JAN SANDY APRN) Adult General Chief Complaint Chief Complaint: Neck Pain HPI HPI Patient is a 68 year old male, accompanied by son, who presents to the emergency department with complaints of neck stiffness and tenderness since awakening yesterday. Patient states that symptoms gradually resolved throughout the day yesterday however today he woke up again with the neck stiffness and pain. Patient rates his pain a 10 out of 10 with movement. He denies any recent injury or fall. Patient denies any numbness, tingling, or weakness of his upper extremities. He states the only alleviating factor is if he sits still. (JAN SANDY APRN) Review of Systems Review of Systems Constitutional: Denies fever or chills [] Eyes: Denies change in visual acuity, redness, or eye pain [] HENT: Denies nasal congestion or sore throat [] Respiratory: Denies cough or shortness of breath [] Cardiovascular: No additional information not addressed in HPI [] GI: Denies abdominal pain, nausea,or vomiting Musculoskeletal: Denies mid or low back pain; see HPI Integument: Denies rash or skin lesions [] Neurologic: Denies headache, focal weakness or sensory changes [] Complete systems were reviewed and found to be within normal limits, except as documented in this note. (JAN SANDY APRN) Current Medications Current Medications Current Medications Medications (Trade) Dose Ordered Sig/Marisol Start Time Stop Time Status Last Admin Dose Admin Ketorolac Tromethamine (Toradol Im) 30 mg 1X ONCE 04/18/19 11:30 04/18/19 11:35 DC 04/18/19 11:55 30 MG Orphenadrine Citrate (Norflex) 60 mg 1X ONCE 04/18/19 11:30 04/18/19 11:35 DC 04/18/19 11:52 60 MG Prednisone (Prednisone) 50 mg 1X ONCE 04/18/19 11:30 04/18/19 11:35 DC 04/18/19 11:50 50 MG (MARCO MCCONNELL MD) Allergies Allergies Allergies Coded Allergies Type Severity Reaction Last Updated Verified No Known Drug Allergies 10/11/16 No (MARCO MCCONNELL MD) Physical Exam Physical Exam Constitutional: Well developed, well nourished, no acute distress, non-toxic appearance. [] HENT: Normocephalic, atraumatic, bilateral external ears normal, nose normal. [] Eyes: PERRLA, EOMI, conjunctiva normal, no discharge. [] Neck: supple, no stridor; bilateral cervical paraspinal TTP, no bony cervical tenderness, no deformity Cardiovascular:Heart rate regular rhythm Lungs & Thorax: Bilateral breath sounds clear to auscultation [] Skin: Warm, dry, no erythema, no rash. [] Extremities: No cyanosis, no clubbing, ROM intact, no edema. 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 [] Psychologic: Affect normal, judgement normal, mood normal. [] (JAN SANDY APRN) Current Patient Data Vital Signs Vital Signs Date Time Temp Pulse Resp B/P (MAP) Pulse Ox O2 Delivery O2 Flow Rate FiO2 04/18/19 11:15 97.8 106 16 161/87 (111) 96 Room Air 97.8 (MARCO MCCONNELL MD) EKG EKG [] (JAN SANDY APRN) Radiology/Procedures Radiology/Procedures [] (JAN SANDY APRN) Course & Med Decision Making Course & Med Decision Making Pertinent Labs and Imaging studies reviewed. (See chart for details) dx:acute cervical strain Pt was given 30 mg of IM toradol, 60 mg of norflex, and 50 mg of PO prednisone. Encouraged pt to drink plenty of water. Apply heat or ice to sore area as needed for comfort. Follow up with PCP in 1-2 days, return to the ER if symptoms worsen. Prescriptions for prednisone and norflex written. Patient verbalized an understanding of home care, medications, follow-up, and return to ED instructions and was in agreement with the plan of care. [] (JAN SANDY APRN) Course & Med Decision Making Staff Physician Addendum: I was working in the ER during the course of this patient's visit. I was available for consultation as needed, but I was not directly involved in the care of this patient. (MARCO MCCONNELL MD) Dragon Disclaimer Dragon Disclaimer This electronic medical record was generated, in whole or in part, using a voice recognition dictation system. (JAN SANDY APRN) Departure Departure Impression: Primary Impression: Cervical strain, acute Disposition: 01 HOME, SELF-CARE Condition: STABLE Referrals: SANDRA CARDENAS MD (PCP) Patient Instructions: Cervical Sprain, [id number] Additional Instructions: Fill the prescriptions and use as directed. Apply ice or heat to sore areas as needed. Follow up with your primary care doctor in 1-2 days. Return to the ER if symptoms worsen. Scripts Orphenadrine Citrate (ORPHENADRINE CITRATE) 100 Mg Tablet.er 1 TAB PO BID PRN for PAIN for 10 Days, #20 TAB 0 Refills Prov: JAN SANDY APRN 04/18/19 Prednisone (PREDNISONE) 50 Mg Tablet 1 TAB PO DAILY for 4 Days, #4 TAB 0 Refills begin taking tomorrow 04/19/19 Prov: JAN SANDY APRN 04/18/19 Problem Qualifiers Primary Impression: Cervical strain, acute Encounter type: initial encounter Qualified Codes: S16.1XXA - Strain of muscle, fascia and tendon at neck level, initial encounter JAN SANDY APRN Apr 18, 2019 11:21 MARCO MCCONNELL MD Apr 18, 2019 16:39
[2019-04-18] MEDS ORDERED: KETOROLAC 60 MG/2 ML VIAL. IM ONE (11:30)
[2019-04-18] MEDS ORDERED: ORPHENADRINE CITRATE 60 MG/2 ML VIAL. IM ONE (11:30)
[2019-04-18] MEDS ORDERED: predniSONE 10 MG TABLET PO ONE (11:30)
[2019-04-18] MEDS ORDERED: ORPH100T PO (12:09)
[2019-04-18] MEDS ORDERED: PRED50TA PO (12:09)
== END 2019-04-18 12:36 | disposition home or self-care (01) ==
LOC: ER 10:23
DX: S16.1XXA Strain of muscle, fascia and tendon at neck level, initial encounter (principal); I10 Essential (primary) hypertension; Z85.46 Personal history of malignant neoplasm of prostate; X58.XXXA Exposure to other specified factors, initial encounter; Y93.89 Activity, other specified; Y92.89 Other specified places as the place of occurrence of the external cause; Y99.8 Other external cause status
CPT/HCPCS: 96372; 99284; J1885; J2360; J7512

== ENCOUNTER 2019-08-04 10:40 | Emergency (ER) | payer MEDICARE, MEDICAID ==
[~2019-08-04] VITALS: Ht 175.3 cm; Wt 61.3 kg
[~2019-08-04 10:40] MED LIST changes: +ORPH100T PO; +PRED50TA PO; +TRAZ-123 PO; -TRAZ-86 PO
[2019-08-04] MEDS ORDERED: KETOROLAC 60 MG/2 ML VIAL. IM ONE (12:45)
[2019-08-04] MEDS ORDERED: predniSONE 10 MG TABLET PO ONE (12:45)
[2019-08-04] MEDS ORDERED: ORPHENADRINE CITRATE 60 MG/2 ML VIAL. IM ONE (12:45)
--- NOTE | 2019-08-04 13:09 | PHYS DOC ---
Past Medical History Past Medical History: Arrhythmia, Cancer, Hypertension, Other Additional Past Medical Histor: PROSTATE CANCER Past Surgical History: No Surgical History Smoking Status: Current Every Day Smoker Additional Information: 1 PPD Alcohol Use: Occasionally Additional Information: DRINKS 3 TO 4 TIMES A WEEK Drug Use: None Adult General Chief Complaint Chief Complaint: Neck Pain [facility] HPI Patient is a 68 year old white male, accompanied by his daughter, who presents to the emergency department with complaints of bilateral neck pain with no known injury. Patient states that he woke up this morning with bilateral neck stiffness and increased pain with movement. Patient states that this has happened before. He reports that he was previously seen and treated for the same type of pain in this emergency room last fall. Patient currently rates his pain a 10 out of 10 on pain scale, he denies any alleviating factors. Patient states that the medications that were given to him last time help to relieve his pain. He denies any headache, chest pain, palpitations, dizziness, shortness of breath, numbness, tingling, weakness, vision changes, headache, difficulties with speech, or incoordination. He denies any recent travel, fevers, falls, or known injury. All other ROS is neg unless otherwise noted in HPI. Review of Systems Review of Systems See Above Current Medications Current Medications Current Medications Medications (Trade) Dose Ordered Sig/Marisol Start Time Stop Time Status Last Admin Dose Admin Ketorolac Tromethamine (Toradol Im) 30 mg 1X ONCE 08/04/19 12:45 08/04/19 12:46 DC Orphenadrine Citrate (Norflex) 60 mg 1X ONCE 08/04/19 12:45 08/04/19 12:46 DC Prednisone (Prednisone) 50 mg 1X ONCE 08/04/19 12:45 08/04/19 12:46 DC Allergies Allergies Allergies Coded Allergies Type Severity Reaction Last Updated Verified No Known Drug Allergies 10/11/16 No Physical Exam Physical Exam Constitutional: Well developed, well nourished, no acute distress, non-toxic appearance. [] HENT: Normocephalic, atraumatic, bilateral external ears normal, oropharynx moist, nose normal. [] Eyes: PERRLA, EOMI, conjunctiva normal, no discharge. [] Neck: decreased range of motion, no bony tenderness, supple, no stridor, pt able to touch chin to chest, increased pain with lateral motion bilaterally, limited posterior ROM due to pain [] Cardiovascular:Heart rate regular rhythm Lungs & Thorax: Bilateral breath sounds clear to auscultation, Respirations even and unlabored, no retractions, no respiratory distress [] Skin: Warm, dry, no erythema, no rash. [] Back: No bony tenderness Extremities: No cyanosis, ROM intact, no edema, equal strength of BUE Neurologic: Alert and oriented X 3, no focal deficits noted. [] Psychologic: Affect normal, judgement normal, mood normal. [] Current Patient Data Vital Signs Vital Signs Date Time Temp Pulse Resp B/P (MAP) Pulse Ox O2 Delivery O2 Flow Rate FiO2 08/04/19 11:54 97.6 94 17 158/81 (106) 97 Room Air 97.6 EKG EKG [] Radiology/Procedures Radiology/Procedures [] Course & Med Decision Making Course & Med Decision Making Pertinent Labs and Imaging studies reviewed. (See chart for details) [] Dragon Disclaimer Dragon Disclaimer This electronic medical record was generated, in whole or in part, using a voice recognition dictation system. Departure Departure Impression: Primary Impression: Cervical strain, acute Disposition: 01 HOME, SELF-CARE Condition: STABLE Referrals: SANDRA CARDENAS MD (PCP) Patient Instructions: Cervical Sprain, [id number] Additional Instructions: Fill the prescriptions and use as directed. Ffollow up with your primary care doctor in 1-2 days. Apply ice or heat as needed for comfort. Activity as tolerated. Return to the ER if symptoms worsen. Scripts Prednisone (PREDNISONE) 50 Mg Tablet 1 TAB PO DAILY for 4 Days, #4 TAB 0 Refills begin taking on 08/05/18, first dose given in ER Prov: JAN SANDY APRN 08/04/19 Orphenadrine Citrate (ORPHENADRINE CITRATE) 100 Mg Tablet.er 1 TAB PO BID PRN for PAIN for 10 Days, #20 TAB 0 Refills Prov: JAN SANDY APRN 08/04/19 Problem Qualifiers Primary Impression: Cervical strain, acute Encounter type: initial encounter Qualified Codes: S16.1XXA - Strain of muscle, fascia and tendon at neck level, initial encounter JAN SANDY APRN Aug 04, 2019 13:09
[2019-08-04] MEDS ORDERED: ORPH100T PO (13:14)
[2019-08-04] MEDS ORDERED: PRED50TA PO (13:14)
[2019-08-04 13:28] VITALS: BP 155/76
== END 2019-08-04 13:28 | disposition home or self-care (01) ==
LOC: ER 10:40
DX: S16.1XXA Strain of muscle, fascia and tendon at neck level, initial encounter (principal); I10 Essential (primary) hypertension; F17.200 Nicotine dependence, unspecified, uncomplicated; F10.10 Alcohol abuse, uncomplicated; Z86.79 Personal history of other diseases of the circulatory system; Z85.46 Personal history of malignant neoplasm of prostate; W19.XXXA Unspecified fall, initial encounter; Y93.89 Activity, other specified; Y92.89 Other specified places as the place of occurrence of the external cause; Y99.8 Other external cause status
CPT/HCPCS: 96372; 99284; J1885; J2360; J7512

== ENCOUNTER → 2019-09-15 | Day surgery (SDC) | payer MEDICARE, MEDICAID ==
[~2019-09-15] MED LIST changes: +HYDROmorphone 2 MG/ML VIAL IV PRN; +IV RINGERS,LACTATED 1000ML 1,000 ML IV SCH; +MORPHINE SULFATE 2 MG/ML VIAL. IV PRN; +PROCHLORPERAZINE 10 MG/2 ML VIAL. IV PRN; +PROPOFOL 20 ML IV ONE; +fentaNYL PF VIAL 100 MCG/2 ML VIAL IV PRN
[2019-09-15 08:24] VITALS: BP 153/73
--- NOTE | 2019-09-15 08:35 | HP ---
ADMIT DATE: 09/15/2019 REFERRING PHYSICIAN: León Hirsch PA-C. REASON FOR ADMISSION: Rectal bleeding, history of colonic polyps. HISTORY OF PRESENT ILLNESS: A 68-year-old male whose past medical history is significant for COPD, anemia and diverticulosis, is seen with ongoing bleeding as described being bright red in nature, almost daily with wiping. Weight and appetite have been stable. He has had colonic polyps in the past. With continued issues, he requests additional evaluation. PAST MEDICAL HISTORY: Hypertension, COPD, history of colonic polyps. ALLERGIES: None. MEDICATIONS: Carvedilol, citalopram, doxazosin, gabapentin, hydroxyzine, tamsulosin, temazepam, Spiriva, and trazodone. SOCIAL HISTORY: He is a smoker and social drinker. PAST SURGICAL HISTORY: Status post hiatal hernia surgery repair. REVIEW OF SYSTEMS: Per records. PHYSICAL EXAMINATION: GENERAL: Reveals a well-nourished, well-developed male who is alert, cooperative, mild distress. VITAL SIGNS: Temperature 97.9, pulse 106, respiratory rate 18. LUNGS: Reveal decreased breath sounds. CARDIOVASCULAR: S1, S2 without S3, S4 or appreciable murmur. ABDOMEN: Soft abdomen, normal bowel sounds, without appreciable hepatosplenomegaly. EXTREMITIES: Reveals no cyanosis, clubbing or edema. IMPRESSION: Rectal bleeding with history of colonic polyps and diverticular disease. Differential includes cancer, inflammatory bowel disease, ischemic colitis, polyps. Therefore, we recommend interval colonoscopy. Risks and benefits discussed with the patient including risk of infection, perforation and is willing to proceed. ERIC BREWER MD DR: ELLIS/mirtha JOB#: [id number] / [id number]
--- NOTE | 2019-09-16 14:06 | PATHOLOGY ---
[facility] Accession Number: [id number] . 01 Material submitted: . colon - SIGMOID POLYP. Modifiers: sigmoid . 01 Clinical history: . Anemia . 02 Diagnosis: Colon biopsies, sigmoid polyp: - Hyperplastic polyp. 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 02 Comment: There are no adenomatous changes or evidence of malignancy. 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 02 Electronically signed: . Efra Hou MD, Pathologist NPI- [id number] . 01 Gross description: . The specimen is received in formalin, labeled "Connor, Jorje", "sigmoid polyp". Received are 2 segments of slightly polypoid, pale coleman soft tissue measuring 0.1 and 0.2 cm. The specimen is entirely submitted in cassette A1.([facility]; 09/15/2019) DANIELLE/VINCENT 09/15/2019 1702 Local . 02 Pathologist provided ICD-10: K63.5 . 02 CPT . 472482 Specimen Comment: A courtesy copy of this report has been sent to [phone], [phone] Specimen Comment: [id number] Specimen Comment: Report sent to / DR CARDENAS Specimen Comment: A duplicate report has been generated due to demographic updates. Performed at: 01 [facility] [address], [place] [id number] MD John Velasquez MD Phone: [phone] Performed at: 02 [facility] [address], [place] [id number] MD Efra Hou MD Phone: [phone]
== END | disposition home or self-care (01) ==
LOC: ENDOS 06:56
PROVIDERS: ATTEND Internal Medicine Gastroenterology
DX: K62.5 Hemorrhage of anus and rectum (principal); K64.1 Second degree hemorrhoids; K63.5 Polyp of colon; K57.30 Diverticulosis of large intestine without perforation or abscess without bleeding; D64.9 Anemia, unspecified; I10 Essential (primary) hypertension; J44.9 Chronic obstructive pulmonary disease, unspecified; Z86.010 Personal history of colon polyps; Z79.899 Other long term (current) drug therapy; Z98.890 Other specified postprocedural states
CPT/HCPCS: 45380; 88305; J2704

== ENCOUNTER → 2019-12-24 | Outpatient (CLI) | payer MEDICARE, MEDICAID ==
[2019-09-15 08:24] VITALS: BP 153/73
[~2019-12-24] MED LIST changes: -HYDROmorphone 2 MG/ML VIAL IV PRN; -IV RINGERS,LACTATED 1000ML 1,000 ML IV SCH; -MORPHINE SULFATE 2 MG/ML VIAL. IV PRN; -PROCHLORPERAZINE 10 MG/2 ML VIAL. IV PRN; -PROPOFOL 20 ML IV ONE; -fentaNYL PF VIAL 100 MCG/2 ML VIAL IV PRN
--- NOTE | 2019-12-24 15:35 | RAD ---
MR#: [id number] Date of Study: 12/24/2019 Ordering Physician: MARICEL OBANDO, Referring Physician: OSIRIS LEAHY Tech: APPROVED REPORT Test Type: Exercise Stress Nurse/Tech: Melody Gage RN Test Indications: UNSTABLE ANGINA Cardiac History: Hypertension, COPD, Smoker for 60 yrs Medications: See Electronic Medical Record Medical History: See Electronic Medical Record Resting Heart Rate: 92 bpm Resting Blood Pressure: 136/70mmHg Pretest Chest Pain: No chest pain Nurse/Tech Notes S1S2, CLEAR LS Consent: The procedure was explained to the patient in lay terms. Informed consent was witnessed. Moose eout was entered into [employer]. History and Stress Test performed by Melody Gage RN Stress Symptoms Chest pain typical of angina occurred (Severity , min duration). POST EXERCISE Reason for Termination: Reached target heart rate Target HR: 127 Max HR: 135 bpm Max Blood Pressure: 153/71mmHg Chest Pain: Yes. Angina index: 10 Arrhythmia: No. ST Change: No. INTERPRETATION Stress EKG Conclusion: The resting EKG showed a sinus rhythm with septal Q waves and nonspecific ST-T wave changes. With exertion the patient had further ST segment depression in the lateral leads suggestive of ischem ia. Abnormal treadmill nuclear stress test with the patient having chest pain with exertion and lateral S T segment changes suggestive of ischemia with exertion. Conclusion 1. Abnormal treadmill stress test with chest pain with exertion and ST segment changes with exertion that are suggestive of stress-induced ischemia. Signed by : Devin Bertrand MD Electronically Approved : 12/24/2019 15:34:46
== END ==
LOC: NM 10:11
PROVIDERS: ATTEND Internal Medicine
DX: R63.4 Abnormal weight loss (principal); I20.0 Unstable angina; J44.9 Chronic obstructive pulmonary disease, unspecified; R07.9 Chest pain, unspecified; Z72.0 Tobacco use
CPT/HCPCS: 93017

== ENCOUNTER → 2020-02-01 | Outpatient (CLI) | payer MEDICARE, MEDICAID ==
[2019-09-15 08:24] VITALS: BP 153/73
[~2020-02-01] MED LIST changes: +ASPI-886 PO; +ATOR40TA59 PO; +TICA90TA PO
== END | disposition home or self-care (01) ==
LOC: LAB 13:08
PROVIDERS: ATTEND Internal Medicine Cardiovascular Disease
DX: Z11.59 Encounter for screening for other viral diseases (principal); R07.9 Chest pain, unspecified; R94.39 Abnormal result of other cardiovascular function study
CPT/HCPCS: U0003-CS

== ENCOUNTER 2020-02-04 06:52 | Outpatient (CLI) | payer MEDICARE, MEDICAID ==
[~2020-02-04] VITALS: Ht 175.3 cm; Wt 61.2 kg
[2020-02-04] VITALS (16 sets, daily range): BP systolic 120–160; BP diastolic 68–82
[~2020-02-04 06:52] MED LIST changes: -ASPI-886 PO; -ATOR40TA59 PO; -TICA90TA PO
[2020-02-04] MEDS ORDERED: LIDOCAINE 1% PF 2 ML VIAL. ONE (07:38)
[2020-02-04 07:47] LABS: HEMATOCRIT 29.3 % (39.0-53.0); HEMOGLOBIN 9.3 g/dL (13.0-17.5); RED BLOOD COUNT 4.12 x10^6/uL (4.30-5.70); RED CELL DISTRIBUTION WIDTH 18.6 % (11.5-14.5); WHITE BLOOD COUNT 5.9 x10^3/uL (4.0-11.0)
[2020-02-04] MEDS ORDERED: IODIXANOL 320 MG/ML 100 ML VIAL. ONE ×2 (07:47→09:42)
[2020-02-04 07:50] LABS: CALCIUM 8.8 mg/dL (8.5-10.1); CREATININE 1.2 mg/dL (0.7-1.3); GFR 59.7; POTASSIUM 3.6 mmol/L (3.5-5.1)
[2020-02-04 07:58] LABS: PROTHROMBIN TIME PATIENT 12.3 SEC (11.7-14.0)
[2020-02-04] MEDS ORDERED: fentaNYL PF VIAL 100 MCG/2 ML VIAL ONE (08:48)
[2020-02-04] MEDS ORDERED: VERAPAMIL 5 MG/2 ML VIAL. ONE (08:49)
[2020-02-04] MEDS ORDERED: MIDAZOLAM HCL/PF 2 MG/2 ML VIAL. ONE (08:49)
[2020-02-04] MEDS ORDERED: NITROGLYCERIN 200 MCG/2 ML SYRINGE FOR CATH/VASC LAB. ONE ×2 (08:49→09:52)
[2020-02-04] MEDS ORDERED: HEPARIN for IV BOLUS 10,000 UNIT/10 ML VIAL. ONE (08:49)
[2020-02-04] MEDS ORDERED: BIVALIRUDIN 250 MG VIAL. IV ONE ×2 (09:19→09:30)
[2020-02-04] MEDS ORDERED: MIDAZOLAM HCL/PF 2 MG/2 ML VIAL. IV ONE (09:30)
[2020-02-04] MEDS ORDERED: IODIXANOL 320 MG/ML 100 ML VIAL. IART ONE (09:30)
[2020-02-04] MEDS ORDERED: HEPARIN for IV BOLUS 10,000 UNIT/10 ML VIAL. IART ONE (09:30)
[2020-02-04] MEDS ORDERED: VERAPAMIL 5 MG/2 ML VIAL. IART ONE (09:30)
[2020-02-04] MEDS ORDERED: NITROGLYCERIN 200 MCG/2 ML SYRINGE FOR CATH/VASC LAB. IART ONE (09:30)
[2020-02-04] MEDS ORDERED: LIDOCAINE 1% PF 2 ML VIAL. INJ ONE (09:30)
[2020-02-04] MEDS ORDERED: fentaNYL PF VIAL 100 MCG/2 ML VIAL IV ONE (09:30)
[2020-02-04] MEDS ORDERED: TICAGRELOR 90 MG TABLET. ONE (09:52)
[2020-02-04] MEDS ORDERED: ASPIRIN 325 MG TABLET ONE (09:52)
[2020-02-04] MEDS ORDERED: NITROGLYCERIN 200 MCG/2 ML SYRINGE FOR CATH/VASC LAB. ICAR ONE (10:00)
[2020-02-04] MEDS ORDERED: TICAGRELOR 90 MG TABLET. PO ONE (10:00)
[2020-02-04] MEDS ORDERED: ASPIRIN 325 MG TABLET PO ONE (10:00)
--- NOTE | 2020-02-04 10:07 | PDOC ---
MODERATE SEDATION ASSESSMENT RISKS/ALTERNATIVES Risks/Alternatives Risks and alternatives of this type of sedation and procedure discussed with: RISK/ALTERNATIVES: Patient H & P ON CHART H & P H & P on chart and reviewed for co-morbid conditions and appropriate labs. H&P ON CHART: Yes STATUS PREG STATUS ASSESSED: N/A MEDS/ALLERGIES REVIEWED Meds/Allergies Reviewed Medications and Allergies including time and route of recently administered narcotics and sedatives. MEDS/ALLERGIES REVIEWED: Yes ASA RATING ASA RATING: II AIRWAY ASSESSMENT Airway Assessment Airway patency, oral function limitations, presence of caps, crowns, dentures, partials, and ability to extend neck assessed. AIRWAY ASSESSMENT: Yes MALLAMPATI SCORE MALLAMPATI SCORE: II PRE-SEDATION ASSESSMENT PRE-SEDATION ASSESSMENT: Yes ELO TRACY MD Feb 04, 2020 10:07
[2020-02-04] MEDS ORDERED: ACETAMINOPHEN 325 MG TABLET. PO PRN (10:15)
[2020-02-04] MEDS ORDERED: NITROGLYCERIN SUBLINGUAL 0.4 MG BOTTLE OF 25. SL PRN (10:15)
[2020-02-04] MEDS ORDERED: 0.9 % SODIUM CHLORIDE 10 ML DISP.SYRIN. IV PRN (10:15)
--- NOTE | 2020-02-04 10:30 | CARD ---
MR#: [id number] Date of Study: 02/04/2020 Ordering Physician: ELO TRACY, Referring Physician: ELO TRACY, Tech: WAI MUNOZ RTR APPROVED REPORT Technologist: WAI MUNOZ RTR Nurse: Lanny Bingham R.N. Procedure(s) performed: 1. Left heart catheterization, selective coronary angiography and left ventr iculography via right transradial approach 2. Successful PCI/drug-eluting stent placement to the right coronary artery 3. Instant wave free ratio (IFR) measurement to left circumflex artery stenosis MODERATE SEDATION TIME: 56 MINUTES FLUORO TIME: 15.6 MIN DOSE: 74.2 GYCM2 CONTRAST: 211 CC VISI INDICATION The indication(s) include : Chest pain and positive stress test. [facility] Clinical Frailty Scale [facility] Clinical Frailty Scale: Managing Well Heart Failure Heart Failure: No PROCEDURE NARRATIVE After explaining the risks, benefits and alternative options, informed consent was obtained from duarte ent. Patient was brought to the cardiac [employer] Rep[employer] and right wrist was prepped and draped in the usual fashion after confirming a positive modified Osorio's test. Arterial access was obtained in the righ t radial artery and a 6 Russian sheath was inserted. 6 Russian Lloyd catheter was used to perform nito ective angiography of the left and right coronary arteries. 6 Russian pigtail catheter was used to pe rform left ventriculography. Since patient was found to have angiographically borderline significant stenosis involving the left circumflex artery, a decision was made to assess the physiologic signifi cance using instant wave free ratio (IFR) measurement. The left main coronary artery was engaged wit h a 6 Russian AL 0.75 guide catheter and the stenosis in the left circumflex artery was crossed with a atVenu Verrata pressure wire. IFR measurement was made to the stenosis in the mid segment of LCx, that came back insignificant at 0.95. FINDINGS 1. Hemodynamics: Left ventricular end-diastolic pressure of 20 mmHg. No pullback gradient across th e aortic valve. 2. Left ventriculography: Posterobasal wall hypokinesis with ejection fraction estimated at 40 to 45 %. No significant mitral regurgitation seen. 3. Coronary angiography: a. The left main coronary artery arose from the left sinus of Valsalva, gave rise to the left anteri or descending and left circumflex arteries and did not show any significant stenosis. b. The left anterior descending artery did not show any significant stenosis. c. The left circumflex artery showed 40 to 50% stenosis in the midsegment that was physiologically i nsignificant based on IFR measurement of 0.95. d. The right coronary artery was a large and dominant vessel arising from the right sinus of Valsalv a that showed 99% critical stenosis in the proximal segment with TRAE I flow. The distal segments fi ll via [id number] collaterals. INTERVENTION The right coronary artery was engaged with 6 Russian AL 0.75 guide catheter. The critical 99% stenosi s in the proximal segment of right coronary artery was crossed with a 0.014 inch [employer] pro-water guid ewire. This was predilated with a 2.5 x 12 mm [employer] emerge balloon. The lesion was then treated with a 3.5 x 30 mm resolute [place] drug-eluting stent. Follow-up angiography showed resolutio n of the stenosis to 0% with TRAE-3 distal flow. Patient tolerated the procedure well. Hemostasis w as achieved using TR band. There were no immediate complications. TRAE Flow TRAE Flow (Pre-Intervention): TRAE-1 TRAE Flow (Post-Intervention): TRAE-3 Conclusion 1. Two-vessel coronary artery disease including a critical 99% stenosis involving proximal segment o f right coronary artery and 40 to 50% stenosis involving the left circumflex artery that was physiolo gically insignificant based on IFR measurement of 0.95. 2. Successful PCI/drug-eluting stent placement to the right coronary artery. 3. Posterobasal wall hypokinesis with ejection fraction estimated at 40 to 45% Recommendations 1. Aspirin 81 mg daily 2. Ticagrelor 90 mg twice daily 3. Cardiovascular risk factor modification Signed by : Elo Tracy, Electronically Approved : 02/04/2020 10:30:25
[2020-02-04] MEDS ORDERED: TICA90TA PO (10:51)
[2020-02-04] MEDS ORDERED: ASPI-886 PO (10:52)
[2020-02-04] MEDS ORDERED: IV 1/2 NORMAL SALINE 1,000 ML IV SCH (11:00)
--- NOTE | 2020-02-04 14:10 | NUR ---
pt A&O x4. VSS. removed TR band and applied dressing to rt radial site. no bleeding or swelling noted post dressing. armboard reapplied to rt wrist/hand area. pt's sisters who live with him returned and discussed d/c instructions with all of them. discussed the need to stop smoking. called pt's script for brillinta into [facility] pharmacy for pt. gave them the time and date of followup appt made at Dr. Dey's office for February 23 at 10am. pt out to vehicle per w/c- sister to drive him home
[2020-02-04] MEDS ORDERED: ATOR40TA59 PO ×2 (15:24→15:37)
--- NOTE | 2020-02-04 15:43 | NUR ---
Atorvastatin rx called into [facility] pharmacy. called and notified pt of this new medication.
[2020-02-04] MEDS ORDERED: ATORVASTATIN CALCIUM 40 MG TABLET. PO SCH (21:00)
[2020-02-05] MEDS ORDERED: ASPIRIN ENTERIC COATED 81 MG TABLET.DR. PO SCH (08:00)
[2020-02-05] MEDS ORDERED: TICAGRELOR 90 MG TABLET. PO SCH (09:00)
== END 2020-02-04 14:10 | disposition home or self-care (01) ==
LOC: CCL 06:52
PROVIDERS: ATTEND Internal Medicine Cardiovascular Disease
DX: I25.10 Atherosclerotic heart disease of native coronary artery without angina pectoris (principal); J44.9 Chronic obstructive pulmonary disease, unspecified; F17.210 Nicotine dependence, cigarettes, uncomplicated; Z79.82 Long term (current) use of aspirin; Z79.899 Other long term (current) drug therapy
CPT/HCPCS: 36415; 80048; 85027; 85610; 92928; 93458; 93571; 99152; 99153; C1769; C1874; C1887; C1892; J0583; J1644; J2250; J3010; J3490; Q9967; C1725

== ENCOUNTER 2020-02-18 09:41 | Inpatient (IN) | payer MEDICARE, MEDICAID ==
[2020-02-18] VITALS (27 sets, daily range): BP systolic 92–149; BP diastolic 42–73
[~2020-02-18] VITALS: Ht 175.3 cm; Wt 62.7 kg
[~2020-02-18 09:41] MED LIST changes: +ASPI-886 PO; +ATOR40TA59 PO; +TICA90TA PO
[2020-02-18] MEDS ORDERED: 0.9 % SODIUM CHLORIDE 10 ML DISP.SYRIN. IV PRN (10:30)
--- NOTE | 2020-02-18 11:01 | HP ---
ADMIT DATE: CHIEF COMPLAINT: Severe anemia. HISTORY OF PRESENT ILLNESS: A 69-year-old white male with known COPD and chronic depression, had a cardiac catheterization about a month ago for some recent chest pain. He was found to have severe right coronary artery stenosis and a stent was placed and was started on aspirin and Brilinta, which was not taking prior to that admission. Prior to that and maybe for the last 2 months and since then he has been having dark stools, which described as almost black, and increase in fatigue and weakness in the last week or two. Office visit on 02/17/2020 showed mild tachycardia and moderate pallor and his hemoglobin was surprisingly low at 3.7. He denies any dysphagia, heartburn, abdominal pain, hematochezia, weight loss or any other significant signs of bleeding. He has been followed by [facility] for renal mass, which is felt to possibly be a renal cell cancer, but has not been defined as resectable, not yet, so now diagnosis has been made. He has never had a prior coronary artery disease to his knowledge. PAST MEDICAL HISTORY: Last colonoscopy was in 2017, it was felt to be normal. He had an EGD in 2017 with no known results. He is supposed to be taking omeprazole, but apparently is not taking that drug and takes meds for COPD and is on carvedilol as well for his heart, Flomax for prostate and antidepressants. PAST SURGICAL HISTORY: He has had tonsillectomy and hernia repair. ALLERGIES: He has no known allergies. SOCIAL HISTORY: He is still a smoker about half pack a day, started at age 6, so he smoked for about 63 years. He is a nondrinker. He is , not employed. FAMILY HISTORY: Unremarkable. REVIEW OF SYSTEMS: Denies notable weight loss, hematuria or any other specific symptoms related to the anemia aside from melena OBJECTIVE: ENT: Moderate pallor of the mucosa otherwise generally unremarkable. NECK: Revealed no carotid bruits, masses, or thyroid enlargement. LUNGS: Clear, without tachypnea. CARDIOVASCULAR: Regular rate. Heart rate 110. No murmurs heard. Heart rate is distant. ABDOMEN: Soft, benign and nontender. EXTREMITIES: He has poor pedal and radial pulses. No edema. He has 2+ clubbing. Nail beds are pale. NEUROLOGIC: Physiologic, nonfocal. GENITOURINARY/RECTAL: Not done. ASSESSMENT: 1. Severe microcytic anemia with symptoms of melena both before and after the antiplatelet therapy. Differential would include bleeding from an upper GI lesion, most likely certainly at high risk for esophageal gastric cancer as well as benign disease as he does not take omeprazole. 2. Recent coronary artery stent placement, stable. 3. Severe chronic obstructive pulmonary disease and continued tobacco abuse. 4. Renal mass, possibly renal cell cancer. PLAN: ICU admission for Protonix drip. Urgent transfusions. GI consultation and appropriate medical care. He and his family is aware of his severity of his illness and possible causes for this. Cardiac consultation because of the need for antiplatelet therapy during the course of GI bleeding. SANDRA CARDENAS MD DR: TODD/nts JOB#: [id number] / [id number]
[2020-02-18 12:09] LABS: RED BLOOD COUNT 1.73 x10^6/uL (4.30-5.70); RED CELL DISTRIBUTION WIDTH 18.9 % (11.5-14.5); WHITE BLOOD COUNT 9.7 x10^3/uL (4.0-11.0)
[2020-02-18 12:20] LABS: HEMATOCRIT 11.8 % (39.0-53.0); HEMOGLOBIN 3.7 g/dL (13.0-17.5)
[2020-02-18 12:27] LABS: PROTHROMBIN TIME PATIENT 12.6 SEC (11.7-14.0)
[2020-02-18 12:42] LABS: ALBUMIN 3.4 g/dL (3.4-5.0); ALBUMIN/GLOBULIN RATIO 1.1 (1.0-1.7); CALCIUM 8.8 mg/dL (8.5-10.1); CREATININE 0.9 mg/dL (0.7-1.3); GFR 83.2; POTASSIUM 3.6 mmol/L (3.5-5.1); TOTAL BILIRUBIN 0.4 mg/dL (0.2-1.0); TOTAL PROTEIN 6.4 g/dL (6.4-8.2)
[2020-02-18] MEDS ORDERED: PANTOPRAZOLE SODIUM IV DRIP 80 MG in IV NORMAL SALINE 100ML 100 ML IV PRN (14:00)
--- NOTE | 2020-02-18 14:15 | PDOC2 ---
GI CONSULT Date of Service: DATE: 02/18/20 TIME: 14:06 Reason For Consult: dark stools, ?GI bleed, low Hgb HPI: HPI: 69 y/o male directly admitted. Reports black formed stools x 1 month or more. Had cardiac cath w/ stent placement on 02/04/20, started on ASA and Brilinta then. Hgb was 9.3 at that time. Today is 3.7 w/ MCV 68 and normal BUN. Has noted extreme SOA w/ exertion and some decreased appetite w/ weight loss of 15 pounds over the past 6 months or so. Denies reflux/heartburn, dysphagia, n/v, abd pain, diarrhea, constipation, and hematochezia. Denies previous EGD - H&P suggests had EGD in 2017 (results not known). Colonoscopy for hematochezia by Dr. Wick in 08/2019 showed hyperplastic polyp, sigmoid diverticulosis, non-bleeding internal hemorrhoids. Hepatic cysts on past imaging. No GB, pancreas, or PUD history. No NSAIDs. H/o prostate cancer s/p radiation. Additional h/o indeterminate renal mass followed at . Drinks and smokes. PMH: PMH: CAD w/ stent, HTN, HLD, COPD, pneumonia, prostate cancer s/p radiation, depression prostate biopsy, tonsillectomy FH: Family History: No pertinent hx Social History: Smoke: 1 pack per day ALCOHOL: heavy Drugs: Marijuana ROS: GEN: +fatigue HEENT: Denies blurred vision, sore throat CV: Denies chest pain RESP: +SOA GI: Per HPI : Denies hematuria, dysuria ENDO: +weight loss NEURO: Denies confusion, dizziness MSK: +weakness SKIN: Denies jaundice, pruritus Vitals: Vitals: Vital Signs Date Time Temp Pulse Resp B/P (MAP) Pulse Ox O2 Delivery O2 Flow Rate FiO2 02/18/20 11:00 102 12 122/56 (78) 98 Room Air 02/18/20 10:00 98.0 98.0 Labs: Labs: Laboratory Tests Test 02/18/20 11:45 White Blood Count 9.7 x10^3/uL (4.0-11.0) Red Blood Count 1.73 x10^6/uL (4.30-5.70) Hemoglobin 3.7 g/dL (13.0-17.5) Hematocrit 11.8 % (39.0-53.0) Mean Corpuscular Volume 68 fL (79-100) Mean Corpuscular Hemoglobin 22 pg (25-35) Mean Corpuscular Hemoglobin Concent 31 g/dL (31-37) Red Cell Distribution Width 18.9 % (11.5-14.5) Platelet Count 618 x10^3/uL (140-400) Prothrombin Time 12.6 SEC (11.7-14.0) Prothromb Time International Ratio 1.0 (0.8-1.1) Sodium Level 140 mmol/L (136-145) Potassium Level 3.6 mmol/L (3.5-5.1) Chloride Level 104 mmol/L (98-107) Carbon Dioxide Level 26 mmol/L (21-32) Anion Gap 10 (6-14) Blood Urea Nitrogen 18 mg/dL (8-26) Creatinine 0.9 mg/dL (0.7-1.3) Estimated GFR (Cockcroft-Gault) 83.2 BUN/Creatinine Ratio 20 (6-20) Glucose Level 114 mg/dL (70-99) Calcium Level 8.8 mg/dL (8.5-10.1) Total Bilirubin 0.4 mg/dL (0.2-1.0) Aspartate Amino Transf (AST/SGOT) 10 U/L (15-37) Alanine Aminotransferase (ALT/SGPT) 19 U/L (16-63) Alkaline Phosphatase 54 U/L (46-116) Total Protein 6.4 g/dL (6.4-8.2) Albumin 3.4 g/dL (3.4-5.0) Albumin/Globulin Ratio 1.1 (1.0-1.7) Allergies: Coded Allergies: No Known Drug Allergies (Unverified , 09/15/19) Medications: Current Medications Medications (Trade) Dose Ordered Sig/Marisol Route PRN Reason Start Time Stop Time Status Last Admin Dose Admin Pantoprazole Sodium 80 mg/ Sodium Chloride 100 ml @ 10 mls/hr Q10H PRN IV GIB 02/18/20 14:00 02/18/20 13:47 Imaging: Imaging: - PE: GEN: NAD, a bit hard of hearing HEENT: Atraumatic, PERRL LUNGS: diminished anteriorly HEART: mildly tachycardic ABD: NABS, S/ND/NT EXTREMITY: No edema SKIN: No rashes, no jaundice NEURO/PSYCH: A & O 3 A/P: A/P: SOA, fatigue, dark stools CAD s/p stent placement 02/04/20 on ASA and Brilinta Profound microcytic anemia Decreased appetite, weight loss CRC screen - UTD (08/2019) Diverticulosis, hemorrhoids Hepatic cysts H/o prostate cancer s/p radiation, h/o renal lesion -- Reviewed w/ Dr. Wick. Agree w/ PPI and transfusion. Check anemia parameters. Monitor for bleeding. Will also r/o COVID in case need for endoscopy. ELDA ZAVALETA Feb 18, 2020 14:15
--- NOTE | 2020-02-18 15:13 | PDOC2 ---
ANASTASIIA GUADARRAMA LPC 02/18/20 1513: CARDIAC CONSULT DATE OF CONSULT Date of Consult DATE: 02/18/20 TIME: 14:40 REASON FOR CONSULT Reason for Consult: Recent cardiac stent placement REFERRING PHYSICIAN Referring Physician: Dewayne SOURCE Source: Chart review, Patient HISTORY OF PRESENT ILLNESS HISTORY OF PRESENT ILLNESS This is a 69 yo male admitted for complains increasing fatigue and weakness. He saw his PCP and was pale and tachycardic. No complains of chest pain or abdominal pain but has been having dark sometimes black stools approximately in the last 2 months. He also has renal mass and followed closely by [facility]. Reports that in the last week he has been more tired. Gets LOPES but no chest p ain. Denies any nausea vomiting or abdominal pain. He has noted also that he continues to have black stools. He has been compliant with his medications but could not tell me exactly what they are and si having difficulty with recall. Reports of dizziness and periods to which he almost passes out. PAST MEDICAL HISTORY Cardiovascular: CAD, CHF, HTN, Hyperlipidemia, Other (ICM) Pulmonary: COPD, Pneumonia, Other (pulmonary nodules) CENTRAL NERVOUS SYSTEM: Periperal neuropathy GI: Diverticulosis, Other (hepatitis) Heme/Onc: Cancer (colon) Psych: Depression Musculoskeletal: Osteoarthritis Renal/: Prostate Ca. (with radiation) Endocrine: No pertinent hx PAST SURGICAL HISTORY Past Surgical History: Hernia Repair, Tonsillectomy, Other (PCI) FAMILY HISTORY Family History: Coronary Artery Disease (sister) SOCIAL HISTORY Smoke: <1 pack per day ALCOHOL: none Drugs: None Lives: with Family CURRENT MEDICATIONS CURRENT MEDICATIONS Current Medications Medications (Trade) Dose Ordered Sig/Marisol Route PRN Reason Start Time Stop Time Status Last Admin Dose Admin Pantoprazole Sodium 80 mg/ Sodium Chloride 100 ml @ 10 mls/hr Q10H PRN IV GIB 02/18/20 14:00 02/18/20 13:47 ALLERGIES ALLERGIES: Coded Allergies: No Known Drug Allergies (Unverified , 09/15/19) ROS Review of System 14 point ROS evaluated with pertinent positives noted per HPI PHYSICAL EXAM General: Alert, Oriented X3, Cooperative, No acute distress HEENT: Atraumatic, Mucous membr. moist/pink Lungs: Clear to auscultation, Normal air movement Heart: Regular rate (SR/ST), Normal S1, Normal S2, Other (2/6 systolic murmur to LLS border) Abdomen: Soft, No tenderness Extremities: No cyanosis, No edema Skin: No breakdown, No significant lesion Neuro: Normal speech, Sensation intact Psych/Mental Status: Mental status NL, Mood NL MUSCULOSKELETAL: Osteoarthritic changes both hands VITALS/I&O VITALS/I&O: Vital Signs Date Time Temp Pulse Resp B/P (MAP) Pulse Ox O2 Delivery O2 Flow Rate FiO2 02/18/20 14:20 97.9 104 12 114/59 97.9 02/18/20 14:00 100 Room Air LABS Lab: Laboratory Tests Test 02/18/20 11:45 White Blood Count 9.7 x10^3/uL (4.0-11.0) Red Blood Count 1.73 x10^6/uL (4.30-5.70) L Hemoglobin 3.7 g/dL (13.0-17.5) *L Hematocrit 11.8 % (39.0-53.0) *L Mean Corpuscular Volume 68 fL (79-100) L Mean Corpuscular Hemoglobin 22 pg (25-35) L Mean Corpuscular Hemoglobin Concent 31 g/dL (31-37) Red Cell Distribution Width 18.9 % (11.5-14.5) H Platelet Count 618 x10^3/uL (140-400) H Prothrombin Time 12.6 SEC (11.7-14.0) Prothrombin Time INR 1.0 (0.8-1.1) Sodium Level 140 mmol/L (136-145) Potassium Level 3.6 mmol/L (3.5-5.1) Chloride Level 104 mmol/L (98-107) Carbon Dioxide Level 26 mmol/L (21-32) Anion Gap 10 (6-14) Blood Urea Nitrogen 18 mg/dL (8-26) Creatinine 0.9 mg/dL (0.7-1.3) Estimated GFR (Cockcroft-Gault) 83.2 BUN/Creatinine Ratio 20 (6-20) Glucose Level 114 mg/dL (70-99) H Calcium Level 8.8 mg/dL (8.5-10.1) Total Bilirubin 0.4 mg/dL (0.2-1.0) Aspartate Amino Transferase (AST) 10 U/L (15-37) L Alanine Aminotransferase (ALT) 19 U/L (16-63) Alkaline Phosphatase 54 U/L (46-116) Total Protein 6.4 g/dL (6.4-8.2) Albumin 3.4 g/dL (3.4-5.0) Albumin/Globulin Ratio 1.1 (1.0-1.7) Laboratory Tests 02/18/20 11:45 Laboratory Tests 02/18/20 11:45 HEART CATH HEART CATH Conclusion 1. Two-vessel coronary artery disease including a critical 99% stenosis involving proximal segment of right coronary artery and 40 to 50% stenosis involving the left circumflex artery that was physiologically insignificant based on IFR measurement of 0.95. 2. Successful PCI/drug-eluting stent placement to the right coronary artery 3. Posterobasal wall hypokinesis with ejection fraction estimated at 40 to 45% Recommendations 1. Aspirin 81 mg daily 2. Ticagrelor 90 mg twice daily 3. Cardiovascular risk factor modification DATE: 02/04/20 1006 ASSESSMENT/PLAN ASSESSMENT/PLAN 1. Severe Anemia/GI bleed 2. CAD: S/P PCI/MICHAEL to RCA 02/04/2020 3. ICM: EF 40-45%, presently compensated 4. HTN: controlled 5. COPD with tobaccoism 6. Poor recall: possible dementia Recommendations 1. Blood transfusion ongoing. Hold antiplatelet therapy in the next 24-48 hours. Awaiting plans from GI 2. Verified his medications ASA,brilinta, atorvastatin and appears that he did not fill this till 02/06.Appears not to have picked up coreg at the pharmacy. Will need dementia evaluation 3. Monitor for HF s/s. Will hold off BP meds for now till transfusion is complete then will reevaluate. 4. Pt does live alone and will likely need assistance from family. Will reevaluate GDMT tomorrow and reassess antiplatelet therapy. ELO TRACY MD 02/18/20 1734: CARDIAC CONSULT ASSESSMENT/PLAN ASSESSMENT/PLAN Patient seen and examined. Agree with TEXTILE SUPERVISOR's assessment and plan. Continue work-up for severe anemia/GI bleeding per gastroenterology team. CAD s/p recent PCI/MICHAEL to RCA, clinically stable. Hold DAPT for now and start Plavix without aspirin when okay from GI standpoint Chronic systolic heart failure clinically well compensated Thank you for your consultation ANASTASIIA GUADARRAMA APRN Feb 18, 2020 15:13 ELO TRACY MD Feb 18, 2020 17:34
--- NOTE | 2020-02-18 16:18 | EKG ---
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
[2020-02-18] MEDS ORDERED: DULO60CA6 PO (16:37)
[2020-02-18] MEDS ORDERED: HYDR12.575 PO (16:37)
[2020-02-18] MEDS ORDERED: ARIP5TAB13 PO (16:37)
[2020-02-18] MEDS ORDERED: ESZO2TAB21 PO (16:37)
[2020-02-18 16:50] LABS: CHOLESTEROL/HDL RATIO 2.9
[2020-02-18] MEDS: NICOTINE 14MG PATCH. TD PRN (19:33)
[2020-02-18] MEDS: ATORVASTATIN CALCIUM 40 MG TABLET. PO SCH (21:29)
[2020-02-18] MEDS: TAMSULOSIN 0.4 MG CAP.ER.24H. PO SCH (21:29)
[2020-02-18] MEDS: GABAPENTIN 300 MG CAPSULE. PO SCH (21:29)
[2020-02-18] MEDS: TEMAZEPAM 15 MG CAPSULE PO PRN (21:29)
[2020-02-18] MEDS: hydrOXYzine 25 MG TABLET PO SCH (21:29)
[2020-02-18] MEDS: PANTOPRAZOLE SODIUM IV DRIP 80 MG in IV NORMAL SALINE 100ML 100 ML IV SCH (22:40)
[2020-02-19] VITALS (14 sets, daily range): BP systolic 81–124; BP diastolic 42–65
[2020-02-19 06:12] LABS: BASO # 0.1 x10^3/uL (0.0-0.2); BASO % 1 % (0-3); EOS # 0.2 x10^3/uL (0.0-0.7); EOS % 3 % (0-3); HEMATOCRIT 23.7 % (39.0-53.0); HEMOGLOBIN 7.7 g/dL (13.0-17.5); LYMPH # 1.9 x10^3/uL (1.0-4.8); LYMPH % 28 % (24-48); MEAN CORPUSCULAR HEMOGLOBIN 26 pg (25-35); MEAN CORPUSCULAR HGB CONC 33 g/dL (31-37); MEAN CORPUSCULAR VOLUME 79 fL (79-100); MONO # 0.9 x10^3/uL (0.0-1.1); MONO % 13 % (0-9); NEUT # 3.7 x10^3/uL (1.8-7.7); NEUT % 56 % (31-73); PLATELET COUNT 452 x10^3/uL (140-400); RED BLOOD COUNT 3.01 x10^6/uL (4.30-5.70); RED CELL DISTRIBUTION WIDTH 20.2 % (11.5-14.5); WHITE BLOOD COUNT 6.7 x10^3/uL (4.0-11.0)
[2020-02-19] MEDS: PANTOPRAZOLE SODIUM IV DRIP 80 MG in IV NORMAL SALINE 100ML 100 ML IV SCH (08:45)
[2020-02-19] MEDS: hydrOXYzine 25 MG TABLET PO SCH ×2 (08:45→21:47)
[2020-02-19] MEDS: GABAPENTIN 300 MG CAPSULE. PO SCH ×3 (08:45→21:47)
[2020-02-19] MEDS: NICOTINE 14MG PATCH. TD PRN (08:46)
--- NOTE | 2020-02-19 09:17 | PDOC ---
Provider Note Provider Note vss, exam same, feels some better- hb 7.7 x 2, after 3 u prbc- has had melena x 2 months, worse since DAPA- as smoker, higher risk for gi malignancy- go to po protonix, serial cbc, egd in consideration as likely source of bleed- is covid neg, rest of labs ok- keep off asa/brilenta for now Justicifation of Admission Dx: Justifications for Admission: Justification of Admission Dx: Yes Comments: severe anemia SANDRA CARDENAS MD Feb 19, 2020 09:17
[2020-02-19 10:26] LABS: HEMATOCRIT 25.6 % (39.0-53.0); HEMOGLOBIN 8.5 g/dL (13.0-17.5); RED BLOOD COUNT 3.27 x10^6/uL (4.30-5.70); RED CELL DISTRIBUTION WIDTH 20.8 % (11.5-14.5); WHITE BLOOD COUNT 6.5 x10^3/uL (4.0-11.0)
[2020-02-19 10:54] LABS: ANISOCYTOSIS MOD; OVALOCYTES FEW; PLT ESTIMATE ADEQUATE (ADEQUATE); POLYCHROMASIA SLIGHT
[2020-02-19 10:55] LABS: HYPOCHROMIA SLIGHT
--- NOTE | 2020-02-19 11:07 | PDOC ---
PROGRESS NOTES Date of Service: DATE: 02/19/20 TIME: 11:07 Subjective Subjective Denied any chest pain. Feeling better. Objective Objective Vital Signs Date Time Temp Pulse Resp B/P (MAP) Pulse Ox O2 Delivery O2 Flow Rate FiO2 02/19/20 08:00 64 24 107/42 (63) 90 Room Air 02/19/20 07:00 97.7 97.7 Intake and Output 02/19/20 07:00 Intake Total 2486 ml Output Total 1250 ml Balance 1236 ml Intake Oral 1200 ml IV Total 196 ml Blood Product 640 ml Blood Product IV Normal Saline Flush 350 ml Other 100 ml Output Urine Total 1250 ml Physical Exam Abdomen: Soft, No tenderness Heart: Regular rate (SR/ST), Normal S1, Normal S2, Other (2/6 systolic murmur to LLS border) Extremities: No cyanosis, No edema General: Alert, Oriented X3, Cooperative, No acute distress HEENT: Atraumatic, Mucous membr. moist/pink Lungs: Clear to auscultation, Normal air movement Neuro: Normal speech, Sensation intact Psych/Mental Status: Mental status NL, Mood NL Skin: No breakdown, No significant lesion Assessment Assessment 1. Severe Anemia/GI bleed, hemoglobin 7.7 posttransfusion. GI team following. Possible endoscopy on Friday. 2. CAD: S/P PCI/MICHAEL to RCA 02/04/2020, clinically stable and chest pain-free. Telemetry showed few PVCs without any significant arrhythmias. Due to recent MICHAEL placement, consider initiating Plavix without aspirin as soon as possible from GI standpoint. 3. ICM: EF 40-45%, chronic systolic heart failure, presently well compensated 4. HTN: controlled 5. COPD with tobaccoism, advised smoking cessation Comment Review of Relevant I have reviewed the following items juan (where applicable) has been applied. Labs Laboratory Tests Test 02/18/20 11:45 02/18/20 18:45 02/18/20 20:30 02/19/20 00:45 White Blood Count 9.7 x10^3/uL (4.0-11.0) Red Blood Count 1.73 x10^6/uL (4.30-5.70) Hemoglobin 3.7 g/dL (13.0-17.5) 6.4 g/dL (13.0-17.5) 7.7 g/dL (13.0-17.5) Hematocrit 11.8 % (39.0-53.0) Mean Corpuscular Volume 68 fL (79-100) Mean Corpuscular Hemoglobin 22 pg (25-35) Mean Corpuscular Hemoglobin Concent 31 g/dL (31-37) Red Cell Distribution Width 18.9 % (11.5-14.5) Platelet Count 618 x10^3/uL (140-400) Absolute Reticulocyte Count 0.068 x10^6/uL (0.020-0.120) Percent Reticulocyte Count 3.9 % (0.5-2.3) Immature Reticulocyte Fraction 0.46 (0.20-0.60) Prothrombin Time 12.6 SEC (11.7-14.0) Prothromb Time International Ratio 1.0 (0.8-1.1) Sodium Level 140 mmol/L (136-145) Potassium Level 3.6 mmol/L (3.5-5.1) Chloride Level 104 mmol/L (98-107) Carbon Dioxide Level 26 mmol/L (21-32) Anion Gap 10 (6-14) Blood Urea Nitrogen 18 mg/dL (8-26) Creatinine 0.9 mg/dL (0.7-1.3) Estimated GFR (Cockcroft-Gault) 83.2 BUN/Creatinine Ratio 20 (6-20) Glucose Level 114 mg/dL (70-99) Calcium Level 8.8 mg/dL (8.5-10.1) Iron Level 6 ug/dL (65-175) Total Iron Binding Capacity 369 ug/dL (250-450) Iron Saturation 2 % (15-34) Total Bilirubin 0.4 mg/dL (0.2-1.0) Aspartate Amino Transf (AST/SGOT) 10 U/L (15-37) Alanine Aminotransferase (ALT/SGPT) 19 U/L (16-63) Alkaline Phosphatase 54 U/L (46-116) Total Protein 6.4 g/dL (6.4-8.2) Albumin 3.4 g/dL (3.4-5.0) Albumin/Globulin Ratio 1.1 (1.0-1.7) Triglycerides Level 94 mg/dL (0-150) Cholesterol Level 120 mg/dL (0-200) LDL Cholesterol, Calculated 59 mg/dL (0-100) VLDL Cholesterol, Calculated 19 mg/dL (0-40) Non-HDL Cholesterol Calculated 78 mg/dL (0-129) HDL Cholesterol 42 mg/dL (40-60) Cholesterol/HDL Ratio 2.9 Vitamin B12 Level 286 pg/mL (247-911) SARS-CoV-2 Antigen (Rapid) Negative (NEGATIVE) Test 02/19/20 05:00 02/19/20 10:11 White Blood Count 6.7 x10^3/uL (4.0-11.0) 6.5 x10^3/uL (4.0-11.0) Red Blood Count 3.01 x10^6/uL (4.30-5.70) 3.27 x10^6/uL (4.30-5.70) Hemoglobin 7.7 g/dL (13.0-17.5) 8.5 g/dL (13.0-17.5) Hematocrit 23.7 % (39.0-53.0) 25.6 % (39.0-53.0) Mean Corpuscular Volume 79 fL (79-100) 78 fL (79-100) Mean Corpuscular Hemoglobin 26 pg (25-35) 26 pg (25-35) Mean Corpuscular Hemoglobin Concent 33 g/dL (31-37) 33 g/dL (31-37) Red Cell Distribution Width 20.2 % (11.5-14.5) 20.8 % (11.5-14.5) Platelet Count 452 x10^3/uL (140-400) 505 x10^3/uL (140-400) Neutrophils (%) (Auto) 56 % (31-73) Lymphocytes (%) (Auto) 28 % (24-48) Monocytes (%) (Auto) 13 % (0-9) Eosinophils (%) (Auto) 3 % (0-3) Basophils (%) (Auto) 1 % (0-3) Neutrophils # (Auto) 3.7 x10^3/uL (1.8-7.7) Lymphocytes # (Auto) 1.9 x10^3/uL (1.0-4.8) Monocytes # (Auto) 0.9 x10^3/uL (0.0-1.1) Eosinophils # (Auto) 0.2 x10^3/uL (0.0-0.7) Basophils # (Auto) 0.1 x10^3/uL (0.0-0.2) Platelet Estimate Adequate (ADEQUATE) Polychromasia Slight Hypochromasia Slight Anisocytosis Mod Ovalocytes Few Medications Current Medications Atorvastatin Calcium (Lipitor) 40 mg QHS PO Last administered on 02/18/20 21:29; Start 02/18/20 at 21:00 Gabapentin (Neurontin) 300 mg TID PO Last administered on 02/19/20at 08:45; Start 02/18/20 at 21:00 Hydroxyzine HCl (Atarax) 25 mg BID PO Last administered on 02/19/20 08:45; Start 02/18/20 at 21:00 Nicotine (Nicoderm Cq 14mg) 1 patch PRN DAILY PRN TD SMOKING CESSATION Last administered on 02/19/20 08:46; Start 02/18/20 at 19:00 Pantoprazole Sodium (Protonix) 40 mg BIDAFTMEAL PO ; Start 02/19/20 at 09:30 Pantoprazole Sodium 80 mg/ Sodium Chloride 100 ml @ 10 mls/hr Q10H IV Last administered on 02/19/20at 08:45; Start 02/18/20 at 23:00; Stop 02/19/20 at 09:27; Status DC Pantoprazole Sodium 80 mg/ Sodium Chloride 100 ml @ 10 mls/hr Q10H PRN IV GIB Last administered on 02/18/20at 13:47; Start 02/18/20 at 14:00; Stop 02/18/20 at 22:07; Status DC Tamsulosin HCl (Flomax) 0.4 mg HS PO Last administered on 02/18/20at 21:29; Start 02/18/20 at 21:00 Temazepam (Restoril) 15 mg PRN QHS PRN PO INSOMNIA Last administered on 02/18/20 21:29; Start 02/18/20 at 20:00 Vitals/I & O Vital Sign - Last 24 Hours 02/18/20 02/18/20 02/18/20 02/18/20 12:00 13:00 14:00 14:14 Temp 98.4 97.9 98.4 97.9 Pulse 102 97 104 104 Resp 12 12 12 12 B/P (MAP) 101/52 (68) 108/58 (75) 114/59 (77) 104/55 Pulse Ox 98 100 100 O2 Delivery Room Air Room Air Room Air 02/18/20 02/18/20 02/18/20 02/18/20 14:20 14:45 15:00 16:00 Temp 97.9 98.2 97.9 98.2 Pulse 104 107 100 92 Resp 12 12 12 12 B/P (MAP) 114/59 119/59 107/59 (75) 119/65 (83) Pulse Ox 94 94 O2 Delivery Room Air Room Air 02/18/20 02/18/20 02/18/20 02/18/20 16:22 16:44 17:00 17:22 Temp 98.1 98.6 98.1 98.6 Pulse 94 92 94 88 Resp 12 12 12 12 B/P (MAP) 119/65 119/62 111/58 (75) 110/61 Pulse Ox 100 O2 Delivery Room Air 02/18/20 02/18/20 02/18/20 02/18/20 18:01 18:08 19:00 20:00 Temp 98.1 98.0 97.8 98.1 98.0 97.8 Pulse 101 95 92 82 Resp 18 20 20 B/P (MAP) 149/49 (82) 149/49 116/63 (80) 127/73 (91) Pulse Ox 98 100 100 O2 Delivery Room Air Room Air Room Air 02/18/20 02/18/20 02/18/20 02/18/20 21:00 22:00 22:20 23:00 Temp 97.6 98.1 97.6 98.1 Pulse 82 86 86 99 Resp 20 B/P (MAP) 117/69 (85) 103/65 (78) 103/65 92/44 (60) Pulse Ox 100 99 100 O2 Delivery Room Air Room Air Room Air 02/18/20 02/19/20 02/19/20 02/19/20 23:20 00:24 01:00 02:00 Temp 97.7 98.1 98.0 97.7 98.1 98.0 Pulse 85 89 89 99 Resp 20 B/P (MAP) 107/62 102/63 117/55 (75) 95/49 (64) Pulse Ox 98 100 O2 Delivery Room Air Room Air 02/19/20 02/19/20 02/19/20 02/19/20 03:00 04:00 05:00 06:00 Temp 97.8 97.8 Pulse 79 86 81 87 Resp 20 20 18 16 B/P (MAP) 87/47 (60) 102/58 (73) 96/43 (60) 81/45 (57) Pulse Ox 96 99 99 98 O2 Delivery Room Air Room Air Room Air Room Air 02/19/20 02/19/20 07:00 08:00 Temp 97.7 97.7 Pulse 67 64 Resp 18 24 B/P (MAP) 119/46 (70) 107/42 (63) Pulse Ox 100 90 O2 Delivery Room Air Room Air Intake and Output 02/18/20 02/18/20 02/19/20 15:00 23:00 07:00 Intake Total 970 ml 1350 ml 166 ml Output Total 600 ml 650 ml Balance 970 ml 750 ml -484 ml ELO TRACY MD Feb 19, 2020 11:07
[2020-02-19] MEDS: PANTOPRAZOLE 40 MG TABLET.DR. PO SCH ×2 (11:33→18:15)
--- NOTE | 2020-02-19 14:49 | PDOC ---
Date of Service: DATE: 02/19/20 TIME: 14:48 Subjective: Subjective: No BMs. Hgb 8.5 after transfusion Objective: Vital Signs: Vital Signs Date Time Temp Pulse Resp B/P (MAP) Pulse Ox O2 Delivery O2 Flow Rate FiO2 02/19/20 12:03 97.8 97 14 95/53 (67) 100 Room Air 97.8 Labs: Laboratory Tests Test 02/18/20 18:45 02/18/20 20:30 02/19/20 00:45 02/19/20 05:00 Hemoglobin 6.4 g/dL (13.0-17.5) 7.7 g/dL (13.0-17.5) 7.7 g/dL (13.0-17.5) SARS-CoV-2 Antigen (Rapid) Negative (NEGATIVE) White Blood Count 6.7 x10^3/uL (4.0-11.0) Red Blood Count 3.01 x10^6/uL (4.30-5.70) Hematocrit 23.7 % (39.0-53.0) Mean Corpuscular Volume 79 fL (79-100) Mean Corpuscular Hemoglobin 26 pg (25-35) Mean Corpuscular Hemoglobin Concent 33 g/dL (31-37) Red Cell Distribution Width 20.2 % (11.5-14.5) Platelet Count 452 x10^3/uL (140-400) Neutrophils (%) (Auto) 56 % (31-73) Lymphocytes (%) (Auto) 28 % (24-48) Monocytes (%) (Auto) 13 % (0-9) Eosinophils (%) (Auto) 3 % (0-3) Basophils (%) (Auto) 1 % (0-3) Neutrophils # (Auto) 3.7 x10^3/uL (1.8-7.7) Lymphocytes # (Auto) 1.9 x10^3/uL (1.0-4.8) Monocytes # (Auto) 0.9 x10^3/uL (0.0-1.1) Eosinophils # (Auto) 0.2 x10^3/uL (0.0-0.7) Basophils # (Auto) 0.1 x10^3/uL (0.0-0.2) Platelet Estimate Adequate (ADEQUATE) Polychromasia Slight Hypochromasia Slight Anisocytosis Mod Ovalocytes Few Test 02/19/20 10:11 White Blood Count 6.5 x10^3/uL (4.0-11.0) Red Blood Count 3.27 x10^6/uL (4.30-5.70) Hemoglobin 8.5 g/dL (13.0-17.5) Hematocrit 25.6 % (39.0-53.0) Mean Corpuscular Volume 78 fL (79-100) Mean Corpuscular Hemoglobin 26 pg (25-35) Mean Corpuscular Hemoglobin Concent 33 g/dL (31-37) Red Cell Distribution Width 20.8 % (11.5-14.5) Platelet Count 505 x10^3/uL (140-400) Physical Exam: Physical Exam: PE: GEN: NAD, a bit hard of hearing HEENT: Atraumatic, PERRL LUNGS: diminished anteriorly HEART: mildly tachycardic ABD: NABS, S/ND/NT EXTREMITY: No edema SKIN: No rashes, no jaundice NEURO/PSYCH: A & O 3 Assessment & Plan: Assessment : A/P: A/P: SOA, fatigue, dark stools CAD s/p stent placement 02/04/20 on ASA and Brilinta Profound microcytic anemia Decreased appetite, weight loss CRC screen - UTD (08/2019) Diverticulosis, hemorrhoids Hepatic cysts H/o prostate cancer s/p radiation, h/o renal lesion Plan: Good response to PRBCs Cont PPI plan for EGD Friday Favor hold Plavix until EGD if possible Justicifation of Admission Dx: Justifications for Admission: Justification of Admission Dx: Yes LARISSA PARISH MD Feb 19, 2020 14:49
--- NOTE | 2020-02-19 17:00 | NUR ---
Patient transferred to room 209 with all personal belongings.
[2020-02-19] MEDS: ATORVASTATIN CALCIUM 40 MG TABLET. PO SCH (21:47)
[2020-02-19] MEDS: TAMSULOSIN 0.4 MG CAP.ER.24H. PO SCH (21:47)
[2020-02-19] MEDS: TEMAZEPAM 15 MG CAPSULE PO PRN (21:47)
[2020-02-20 03:25] VITALS: BP 121/72
[2020-02-20 07:00] VITALS: BP 109/66
[2020-02-20] MEDS: PANTOPRAZOLE 40 MG TABLET.DR. PO SCH ×2 (08:52→17:56)
[2020-02-20] MEDS: GABAPENTIN 300 MG CAPSULE. PO SCH ×3 (08:52→20:20)
[2020-02-20] MEDS: NICOTINE 14MG PATCH. TD PRN (08:52)
[2020-02-20] MEDS: hydrOXYzine 25 MG TABLET PO SCH ×2 (08:52→20:20)
--- NOTE | 2020-02-20 10:58 | PDOC ---
Provider Note Provider Note vss, no new sxs or any more melena seen- exam same, hb 8-8.8 after 3 u- malou reg diet and po protoonix- quynh egd 02/20, remains off asa/plavi until dx made for bleeding-- d/w family present Justicifation of Admission Dx: Justifications for Admission: Justification of Admission Dx: Yes SANDRA CARDENAS MD Feb 20, 2020 10:57
[2020-02-20 11:23] VITALS: BP 105/64
--- NOTE | 2020-02-20 12:12 | PDOC ---
PROGRESS NOTES Date of Service: DATE: 02/20/20 TIME: 12:11 Subjective Subjective Denied any chest pain Objective Objective Vital Signs Date Time Temp Pulse Resp B/P (MAP) Pulse Ox O2 Delivery O2 Flow Rate FiO2 02/20/20 11:23 97.3 96 18 105/64 (78) 98 Room Air 97.3 Intake and Output 02/20/20 07:00 Intake Total 950 ml Output Total 1000 ml Balance -50 ml Intake Oral 950 ml Output Urine Total 1000 ml Physical Exam Abdomen: Soft, No tenderness Heart: Regular rate (SR/ST), Normal S1, Normal S2, Other (2/6 systolic murmur t o LLS border) Extremities: No cyanosis, No edema General: Alert, Oriented X3, Cooperative, No acute distress HEENT: Atraumatic, Mucous membr. moist/pink Lungs: Clear to auscultation, Normal air movement Neuro: Normal speech, Sensation intact Psych/Mental Status: Mental status NL, Mood NL Skin: No breakdown, No significant lesion Assessment Assessment 1. Severe Anemia/GI bleed, hemoglobin 8.0 posttransfusion. GI team following. Possible endoscopy on Friday. 2. CAD: S/P PCI/MICHAEL to RCA 02/04/2020, clinically stable and chest pain-free. Telemetry showed few PVCs without any significant arrhythmias. Due to recent MICHAEL placement, consider initiating Plavix without aspirin as soon as possible from GI standpoint. 3. ICM: EF 40-45%, chronic systolic heart failure, presently well compensated 4. HTN: controlled 5. COPD with tobaccoism, advised smoking cessation Comment Review of Relevant I have reviewed the following items juan (where applicable) has been applied. Labs Laboratory Tests Test 02/20/20 07:20 Hemoglobin 8.0 g/dL (13.0-17.5) Vitals/I & O Vital Sign - Last 24 Hours 02/19/20 02/19/20 02/19/20 02/19/20 16:33 16:50 19:48 22:59 Temp 97.9 98.1 97.9 97.7 97.9 98.1 97.9 97.7 Pulse 88 94 87 85 Resp 16 18 18 18 B/P (MAP) 105/63 (77) 111/59 (76) 109/57 (74) 124/65 (84) Pulse Ox 100 98 98 98 O2 Delivery Room Air Room Air Room Air Room Air 02/20/20 02/20/20 02/20/20 03:25 07:00 11:23 Temp 97.6 97.7 97.3 97.6 97.7 97.3 Pulse 99 97 96 Resp 18 16 18 B/P (MAP) 121/72 (88) 109/66 (80) 105/64 (78) Pulse Ox 96 96 98 O2 Delivery Room Air Room Air Room Air Intake and Output 02/19/20 02/19/20 02/20/20 15:00 23:00 07:00 Intake Total 520 ml 380 ml 50 ml Output Total 1000 ml Balance -480 ml 380 ml 50 ml ELO TRACY MD Feb 20, 2020 12:12
--- NOTE | 2020-02-20 13:37 | PDOC ---
Date of Service: DATE: 02/20/20 TIME: 13:36 Subjective: Subjective: Hgb down from 8.5 to 8 today Objective: Vital Signs: Vital Signs Date Time Temp Pulse Resp B/P (MAP) Pulse Ox O2 Delivery O2 Flow Rate FiO2 02/20/20 11:23 97.3 96 18 105/64 (78) 98 Room Air 97.3 Labs: Laboratory Tests Test 02/20/20 07:20 Hemoglobin 8.0 g/dL (13.0-17.5) Physical Exam: Physical Exam: PE: GEN: NAD, a bit hard of hearing HEENT: Atraumatic, PERRL LUNGS: diminished anteriorly HEART: mildly tachycardic ABD: NABS, S/ND/NT EXTREMITY: No edema SKIN: No rashes, no jaundice NEURO/PSYCH: A & O 3 Assessment & Plan: Assessment & Plan: Assessment : A/P: A/P: SOA, fatigue, dark stools CAD s/p stent placement 02/04/20 on ASA and Brilinta Profound microcytic anemia Decreased appetite, weight loss CRC screen - UTD (08/2019) Diverticulosis, hemorrhoids Hepatic cysts H/o prostate cancer s/p radiation, h/o renal lesion Plan: Good response to PRBCs Cont PPI plan for EGD Friday Favor hold Plavix until EGD if possible Justicifation of Admission Dx: Justifications for Admission: Justification of Admission Dx: Yes LARISSA PARISH MD Feb 20, 2020 13:37
[2020-02-20] MEDS ORDERED: 0.9 % SODIUM CHLORIDE 10 ML DISP.SYRIN. IV PRN ×2 (13:45)
[2020-02-20 15:08] VITALS: BP 112/62
[2020-02-20 19:28] VITALS: BP 123/69
[2020-02-20] MEDS: ATORVASTATIN CALCIUM 40 MG TABLET. PO SCH (20:20)
[2020-02-20] MEDS: TEMAZEPAM 15 MG CAPSULE PO PRN (20:20)
[2020-02-20] MEDS: TAMSULOSIN 0.4 MG CAP.ER.24H. PO SCH (20:20)
[2020-02-20 22:38] VITALS: BP 109/64
[2020-02-21 03:13] VITALS: BP 99/51
[2020-02-21 07:00] VITALS: BP 98/57
--- NOTE | 2020-02-21 08:30 | PDOC ---
SUBJECTIVE Subjective No acute changes overnight. OBJECTIVE Objective Reviewed. Vital Signs Vital Signs Date Time Temp Pulse Resp B/P (MAP) Pulse Ox O2 Delivery O2 Flow Rate FiO2 02/21/20 03:13 98.3 97 18 99/51 (67) 95 Room Air 98.3 02/20/20 22:38 98.0 94 18 109/64 (79) 97 Room Air 98.0 02/20/20 19:28 98.1 94 18 123/69 (87) 96 Room Air 98.1 02/20/20 15:08 97.6 108 18 112/62 (79) 98 Room Air 97.6 02/20/20 11:23 97.3 96 18 105/64 (78) 98 Room Air 97.3 I & O Intake and Output 02/21/20 07:00 Intake Total 840 ml Balance 840 ml Intake Oral 840 ml # Voids 3 PHYSICAL EXAM Physical Exam Alert, oriented Regular rate and rhythm Clear to auscultation bilaterally, nonlabored respirations Abdomen soft nontender nondistended Calm cooperative No edema or cyanosis in the extremities ASSESSMENT/PLAN Assessment/Plan Severe Anemia/GI bleed, Hgb 3.7 on admit, s/p 3U PRBCs, Hgb 7.6 this AM, Endoscopy today CAD: S/P PCI/MICHAEL to RCA 02/04/2020, holding DAPT under after endoscopy ICM: EF 40-45%, chronic systolic heart failure, presently well compensated HTN: controlled COPD with nicotine dependence, advised smoking cessation Potential discharge tomorrow pending EGD, repeat Hgb tomorrow AM COMMENT Lab Laboratory Tests Test 02/21/20 03:07 Hemoglobin 7.6 g/dL (13.0-17.5) JOSE GUADALUPE GUZMAN MD Feb 21, 2020 08:30
[2020-02-21] MEDS: GABAPENTIN 300 MG CAPSULE. PO SCH ×3 (09:00→20:50)
[2020-02-21] MEDS: PANTOPRAZOLE 40 MG TABLET.DR. PO SCH ×2 (09:00→18:22)
[2020-02-21] MEDS: hydrOXYzine 25 MG TABLET PO SCH ×2 (09:00→20:50)
[2020-02-21 11:00] VITALS: BP 105/65
--- NOTE | 2020-02-21 12:01 | PDOC ---
MANISH FISHMAN ROSS 02/21/20 1201: CARDIO Progress Notes Date and Time Date of Service 02/21/20 Time of Evaluation 1151 Subjective Subjective: No Chest Pain, No shortness of breath, No Palpitations, Other (having dark stools) Vitals Vitals Vital Signs Date Time Temp Pulse Resp B/P (MAP) Pulse Ox O2 Delivery O2 Flow Rate FiO2 02/21/20 08:00 Room Air 02/21/20 07:00 98.1 90 16 98/57 (71) 97 98.1 Weight Weight [ ] Input and Output Intake and Output Intake and Output 02/21/20 07:00 Intake Total 840 ml Balance 840 ml Intake Oral 840 ml # Voids 3 Laboratory Labs Laboratory Tests Test 02/21/20 03:07 Hemoglobin 7.6 g/dL (13.0-17.5) Physical Exam HEENT: Neck Supple W Full Motion Chest: Symmetric Heart: S1S2, RRR Abdomen: Soft N/T Extremities: No Edema Neurology: alert, oriented, follow commands Assessment Assessment 1. Severe Anemia/GI bleed, hemoglobin 8.0 posttransfusion, then drifted to 7.6. ASA/Plavix held. GI team following. EGD later today. 2. CAD: S/P PCI/MICHALE to RCA 02/04/2020, clinically stable and chest pain-free. Telemetry showed few PVCs without any significant arrhythmias. 3. ICM: EF 40-45%, chronic systolic heart failure, presently well compensated 4. HTN: controlled 5. COPD with tobaccoism, advised smoking cessation Recommendations Secondary prevention as able Await EGD findings Due to recent MICHAEL placement, will need to resume Plavix without aspirin as soon as possible from GI standpoint. Supportive care Justicifation of Admission Dx: Justifications for Admission: Justification of Admission Dx: Yes ELO TRACY MD 02/21/202039: CARDIO Progress Notes Assessment Assessment Patient seen and examined. Agree with CNC MACHINIST 2ND SHIFT's assessment and plan. Pt. CP free...tele without any significant arrhythmias GI planning endoscopy later today Start plavix when ok from GI standpoint KYEMANISH HAWKINS Feb 21, 2020 12:01 ELO TRACY MD Feb 21, 2020 20:40
--- NOTE | 2020-02-21 12:44 | NUR ---
SS following for discharge planning. SS reviewed pt chart and discussed with pt RN. Pt is from home and is currently on room air. Pt having EGD. SS will continue to follow for discharge planning.
[2020-02-21 15:00] VITALS: BP 110/62
[2020-02-21] MEDS ORDERED: LIDOCAINE 2% PF 5 ML VIAL. ONE (16:45)
--- NOTE | 2020-02-21 17:24 | PDOC4 ---
Operative Note Operative Note EGD Meds propofol per anesthesia Pre-op dx acute blood loss anemia post-op dx non-erosive gastritis Plan resume eliquis capsule endoscopy/sb series/colonoscopy if unable to maintain blood counts ERIC BREWER MD Feb 21, 2020 17:24
[2020-02-21 19:43] VITALS: BP 108/72
[2020-02-21] MEDS: ATORVASTATIN CALCIUM 40 MG TABLET. PO SCH (20:50)
[2020-02-21] MEDS: TEMAZEPAM 15 MG CAPSULE PO PRN (20:50)
[2020-02-21] MEDS: TAMSULOSIN 0.4 MG CAP.ER.24H. PO SCH (20:50)
[2020-02-21 23:01] VITALS: BP 108/58
[2020-02-22 02:40] VITALS: BP 96/48
[2020-02-22 07:00] VITALS: BP 104/62
[2020-02-22] MEDS ORDERED: CLOPIDOGREL BISULFATE 75 MG TABLET PO SCH (08:00)
--- NOTE | 2020-02-22 08:03 | PDOC ---
SUBJECTIVE Subjective Feels well, wanting to go home. OBJECTIVE Objective Reviewed. Vital Signs Vital Signs Date Time Temp Pulse Resp B/P (MAP) Pulse Ox O2 Delivery O2 Flow Rate FiO2 02/22/20 02:40 98.2 86 18 96/48 (64) 99 Room Air 98.2 02/21/20 23:01 98.0 102 16 108/58 (75) 98 Room Air 98.0 02/21/20 19:43 98.2 73 16 108/72 (84) 98 Room Air 98.2 02/21/20 17:40 98.4 82 20 112/60 98 Room Air 98.4 02/21/20 17:30 98.4 90 20 99/57 98 Room Air 98.4 02/21/20 17:20 98.4 85 20 104/57 100 Room Air 98.4 02/21/20 16:00 70 20 94 Room Air 02/21/20 15:59 98.2 70 20 94 98.2 02/21/20 15:00 98.0 88 16 110/62 (78) 98 Room Air 98.0 02/21/20 11:00 97.7 89 16 105/65 (78) 99 Room Air 97.7 02/21/20 08:00 Room Air I & O Intake and Output 02/22/20 07:00 Intake Total 1450 ml Balance 1450 ml Intake Oral 1450 ml # Voids 7 PHYSICAL EXAM Physical Exam Alert, oriented Regular rate and rhythm Clear to auscultation bilaterally, nonlabored respirations Abdomen soft nontender nondistended Calm cooperative No edema or cyanosis in the extremities ASSESSMENT/PLAN Assessment/Plan Severe Anemia/GI bleed, Hgb 3.7 on admit, s/p 3U PRBCs, Hgb 7.5 this AM, Endoscopy showed nonerosive gastritis CAD: S/P PCI/MICHAEL to RCA 02/04/2020 ICM: EF 40-45%, chronic systolic heart failure, presently well compensated HTN: controlled COPD with nicotine dependence, advised smoking cessation Restart plavix this AM Bleeding source likely in small bowel or colon. Will need capsule en doscopy/colonoscopy per GI recs Discussed risk of restarting plavix and risks to MICHAEL if not restarting plavix. Pt expressed understanding. Recommended that pt stay until tomorrow AM for Hgb check after starting plavix, but pt adamant that he wants to go home. Agreed to restart plavix this AM and repeat Hgb at 1700 then dc if stable. Will follow Hgb regularly in clinic and will need to be readmitted if needed for transfusion/further eval. Pt is agreeable to this plan. COMMENT Lab Laboratory Tests Test 02/22/20 05:00 Hemoglobin 7.5 g/dL (13.0-17.5) JOSE GUADALUPE GUZMAN MD Feb 22, 2020 08:03
[2020-02-22] MEDS ORDERED: PANT40TA77 PO (08:09)
[2020-02-22] MEDS ORDERED: Nicotine 14MG TD (08:09)
[2020-02-22] MEDS: GABAPENTIN 300 MG CAPSULE. PO SCH ×2 (08:25→14:00)
[2020-02-22] MEDS: PANTOPRAZOLE 40 MG TABLET.DR. PO SCH (08:25)
[2020-02-22] MEDS: hydrOXYzine 25 MG TABLET PO SCH (08:26)
[2020-02-22] MEDS ORDERED: FERROUS SULFATE 325 MG TABLET. PO SCH (09:00)
--- NOTE | 2020-02-22 10:26 | PDOC ---
Date of Service: DATE: 02/22/20 TIME: 10:22 Subjective: Subjective: No complaints, wants to go home. Objective: Objective: Started on Plavix. Reviewed chart - plans to recheck Hgb later today and DC if stable. Vital Signs: Vital Signs Date Time Temp Pulse Resp B/P (MAP) Pulse Ox O2 Delivery O2 Flow Rate FiO2 02/22/20 08:00 Room Air 02/22/20 07:00 98.2 98 16 104/62 (76) 98 98.2 Labs: Laboratory Tests Test 02/22/20 05:00 Hemoglobin 7.5 g/dL Imaging: EGD 02/20 Pre-op dx acute blood loss anemia post-op dx non-erosive gastritis Plan resume eliquis capsule endoscopy/sb series/colonoscopy if unable to maintain blood counts PE: GEN: NAD LUNGS: diminished HEART: RRR ABD: S/ND/NT NEURO/PSYCH: A & O 3 A/P: Dark stools - no recurrence CAD s/p stent placement 02/04/20 ALESSIO CRC screen - UTD (08/2019) -- DC per primary, follow-up for SBCE if anemia persists. Continue iron. Will also give B12 - borderline low. Justicifation of Admission Dx: Justifications for Admission: Justification of Admission Dx: Yes ELDA ZAVALETA Feb 22, 2020 10:26
[2020-02-22] MEDS ORDERED: CYANOCOBALAMIN (VITAMIN B-12) 1,000 MCG/ML VIAL IM ONE (10:30)
--- NOTE | 2020-02-22 10:34 | NUR ---
SS following up with discharge planning. SS reviewed pt chart and discussed with pt RN. Pt is currently on room air. Discharge plan is to home when medically ready. Per physician, will recheck hemoglobin at 1700 and discharge to home if stable.
[2020-02-22 11:00] VITALS: BP 111/61
--- NOTE | 2020-02-22 13:14 | PDOC ---
ANASTASIIA GUADARRAMA POLICE DETECTIVE 02/22/20 1314: CARDIO Progress Notes Date and Time Date of Service 02/22/2020 Time of Evaluation 0920 Subjective Subjective: No Chest Pain, No shortness of breath, No Palpitations Vitals Vitals Vital Signs Date Time Temp Pulse Resp B/P (MAP) Pulse Ox O2 Delivery O2 Flow Rate FiO2 02/22/20 11:00 98.1 104 16 111/61 (78) 99 Room Air 98.1 Weight Weight [ ] Input and Output Intake and Output Intake and Output 02/22/20 07:00 Intake Total 1450 ml Balance 1450 ml Intake Oral 1450 ml # Voids 7 Laboratory Labs Laboratory Tests Test 02/22/20 05:00 Hemoglobin 7.5 g/dL (13.0-17.5) Physical Exam HEENT: Neck Supple W Full Motion Chest: Symmetric LUNGS: Clear to Auscultation Heart: RRR (SR) Abdomen: Soft N/T Extremities: No Edema Neurology: alert, oriented, follow commands Assessment Assessment 1. Severe Anemia/GI bleed: Post transfusion. EGD no obvious bleed site but with nonerosive gastritis. 2. CAD: S/P PCI/MICHEAL to RCA 02/04/2020, clinically stable and chest pain-free 3. ICM: EF 40-45%, chronic systolic heart failure, presently well compensated 4. HTN: controlled 5. COPD with tobaccoism, Recommendations Outpt capsular endoscopy is planned per GI. Restart plavix no ASA. Secondary prevention as able Supportive care Smoking cessation Justicifation of Admission Dx: Justifications for Admission: Justification of Admission Dx: Yes ELO TRACY MD 02/22/20 1338: CARDIO Progress Notes Assessment Assessment Patient seen and examined. Agree with CLINICAL REGISTERED NURSE's assessment and plan. CAD clinically stable. EGD showed erosive gastritis. Start Plavix today. ANASTASIIA GUADARRAMA APRN Feb 22, 2020 13:14 ELO TRACY MD Feb 22, 2020 13:38
[2020-02-22 15:00] VITALS: BP 114/61
--- NOTE | 2020-02-22 19:15 | NUR ---
Discharged patient to home. Discharge instruction given and patient verbalized understanding. PIV and monitor removed. Escorted patient to ER entrance into a private vehicle.
[2020-02-23] MEDS ORDERED: PANTOPRAZOLE 40 MG TABLET.DR. PO SCH (07:30)
--- NOTE | 2020-02-23 08:21 | PDOC3 ---
Discharge Summary Date of Admission: Feb 18, 2020 Date of Discharge: Feb 22, 2020 Follow-Up: 1-2 days Admitting Diagnosis comment: Severe anemia likely secondary to GI bleeding Coronary artery disease status post recent stent placement on dual antiplatelet therapy Brief Hospital Course Mr. Connor is a 69 year old male with known COPD, chronic depression, had a cardiac catheterization early 02/16, was found to have severe right coronary artery stenosis, and a stent was placed and was started on aspirin and Brilinta. Prior to that and maybe for the last 2 months and since then he had been having dark stools, which described as almost black, though he had not reported this to anyone. He continued to have increasing fatigue and weakness in the last week or two prior to admission. Office visit on 02/17/2020 showed mild tachycardia and moderate pallor and his hemoglobin was found to be 3.7. He was directly admitted to the ICU and was transfused 3 units of PRBCs. He was evaluated by GI and on 02/21/20 and EGD was performed and was found to show only nonerosive gastritis. He has recently had a colonoscopy which was reportedly negative. His Brilinta and aspirin were stopped throughout the hospitalization, however given the recent stent placement and the risk to stent failure, it was discussed with cardiology to restart Brilinta only and continue to hold aspirin. The risks and benefits of restarting antiplatelet therapy was discussed with the patient, including the very likelihood that he would begin bleeding again as no source for bleeding was found with EGD. He agreed to restarting antiplatelet therapy in the hospital. I encouraged him to allow us to repeat hemoglobin 24 hours after starting antiplatelet therapy, however the patient was very eager to be discharged. His hemoglobin was repeated 10 hours after administration and was found to be stable at 7.5. He will come to the office tomorrow for hemoglobin check and will follow-up in the clinic in 1 to 2 days. We have discussed that if he has any further melena, hematochezia, hematemesis, or any other concerning symptoms, that he should report these to Dr. Buchanan or myself immediately and/or proceed to the emergency room. If and/or when he starts to bleed again, he will need to be evaluated with a small bowel series, c olonoscopy, and potentially a capsule endoscopy with GI in order to find the source of bleeding. He has been started on iron replacement which he will take daily. No other medication changes have been made. CONDITION AT DISCHARGE: Improved, Stable Discharge Medications Active Scripts Active Pantoprazole Sodium (Pantoprazole Sodium) 40 Mg Tablet.dr 40 Mg PO BIDAFTMEAL 30 Days [Nicotine 14MG] 1 PATCH Patch 1 Patch TD PRN DAILY PRN 30 Days Reported Cymbalta (Duloxetine Hcl) 60 Mg Capsule.dr 60 Mg PO DAILY Lunesta (Eszopiclone) 2 Mg Tablet 2 Mg PO HS PRN Hydrochlorothiazide Capsule (Hydrochlorothiazide) 12.5 Mg Capsule 12.5 Mg PO DAILY Abilify (Aripiprazole) 5 Mg Tablet 1 Tab PO HS 30 Days Atorvastatin Calcium 40 Mg Tablet 1 Tab PO DAILY Brilinta (Ticagrelor) 90 Mg Tablet 90 Mg PO BID Flomax (Tamsulosin Hcl) 0.4 Mg Cap.er.24h 0.4 Mg PO HS Spiriva (Tiotropium [place]) 18 Mcg Cap.w.dev 1 Cap IH DAILY Breo Ellipta 100-25 Mcg Inh (Fluticasone/Vilanterol) 1 Each Aer.pow.ba 1 Puff IH DAILY Hydroxyzine Hcl 25 Mg Tablet 25 Mg PO TID Carvedilol (Carvedilol) 6.25 Mg Tablet 6.25 Mg PO BIDWMEALS Doxazosin Mesylate 4 Mg Tablet 4 Mg PO HS Gabapentin (Gabapentin) 300 Mg Capsule 300 Mg PO TID Ferrous Sulfate 325mg PO daily Vital Signs Vital Signs Date Time Temp Pulse Resp B/P (MAP) Pulse Ox O2 Delivery O2 Flow Rate FiO2 02/22/20 15:00 97.7 98 16 114/61 (78) 99 Room Air 97.7 Labs Laboratory Tests Test 02/22/20 05:00 02/22/20 17:43 Hemoglobin 7.5 g/dL (13.0-17.5) 7.6 g/dL (13.0-17.5) Laboratory Tests Test 02/22/20 17:43 Hemoglobin 7.6 g/dL (13.0-17.5) Allergies Allergies Coded Allergies Type Severity Reaction Last Updated Verified No Known Drug Allergies 02/21/20 No Disposition/Orders: D/C to Home Justicifation of Admission Dx: Justifications for Admission: Justification of Admission Dx: Yes JOSE GUADALUPE GUZMAN MD Feb 23, 2020 08:21
== END 2020-02-22 19:15 | disposition home or self-care (01) | DRG 378 ==
LOC: 1 WEST ICU 09:41 → 2 NORTH 02-19 16:50
PROVIDERS: ADMIT Family Medicine; ATTEND Family Medicine
PROC: 30233N1 Transfusion of Nonautologous Red Blood Cells into Peripheral Vein, Percutaneous Approach (ICD-10-PCS; 2020-02-18)
PROC: 0DJ08ZZ Inspection of Upper Intestinal Tract, Via Natural or Artificial Opening Endoscopic (ICD-10-PCS; principal; 2020-02-21 17:00)
DX: K29.71 Gastritis, unspecified, with bleeding (principal); D62 Acute posthemorrhagic anemia; I50.22 Chronic systolic (congestive) heart failure; D51.0 Vitamin B12 deficiency anemia due to intrinsic factor deficiency; E78.5 Hyperlipidemia, unspecified; F17.210 Nicotine dependence, cigarettes, uncomplicated; F32.9 Major depressive disorder, single episode, unspecified; I11.0 Hypertensive heart disease with heart failure; I25.10 Atherosclerotic heart disease of native coronary artery without angina pectoris; I49.3 Ventricular premature depolarization; J44.9 Chronic obstructive pulmonary disease, unspecified; K57.30 Diverticulosis of large intestine without perforation or abscess without bleeding; N28.89 Other specified disorders of kidney and ureter; Z20.828 Contact with and (suspected) exposure to other viral communicable diseases; I25.5 Ischemic cardiomyopathy; K76.89 Other specified diseases of liver; Z79.02 Long term (current) use of antithrombotics/antiplatelets; Z82.49 Family history of ischemic heart disease and other diseases of the circulatory system; Z87.01 Personal history of pneumonia (recurrent); Z85.038 Personal history of other malignant neoplasm of large intestine; Z85.46 Personal history of malignant neoplasm of prostate; Z92.3 Personal history of irradiation; Z95.5 Presence of coronary angioplasty implant and graft
CPT/HCPCS: 36415; 43235; 80053; 80061; 82607; 83540; 83550; 85018; 85025; 85027; 85045; 85610; 86850; 86900; 86901; 86920; 87426; 93005; 99285; C9113; J3420; P9016; G0378; U0003-CS

== ENCOUNTER → 2020-05-29 | Outpatient (CLI) | payer MEDICARE, MEDICAID ==
[~2020-05-29] MED LIST changes: +ARIP5TAB13 PO; +ESZO2TAB21 PO; +Nicotine 14MG TD
--- NOTE | 2020-05-29 15:02 | CARD ---
MR#: [id number] Date of Study: 05/29/2020 Ordering Physician: ELO TRACY, Referring Physician: ELO TRACY, Tech: Erika Harvey APPROVED REPORT EXAM: Two-dimensional and M-mode echocardiogram with Doppler and color Doppler. Other Information HR: 87bpm INDICATION Cardiac Disease: CAD RISK FACTORS Smoking 2D DIMENSIONS Left Atrium(2D)2.5 (1.6-4.0cm)IVSd0.9 (0.7-1.1cm) Aortic Root(2D)3.7 (2.0-3.7cm)LVDd5.3 (3.9-5.9cm) LVOT Diameter2.2 (1.8-2.4cm)PWd0.9 (0.7-1.1cm) LVDs3.0 (2.5-4.0cm)FS (%) 43.7 % SV101.8 mlLVEF(%)74.4 (>50%) Aortic Valve AoV Peak Patrick.102.8cm/sAoV VTI18.3cm AO Peak GR.4.2mmHgLVOT Peak Patrick.90.2cm/s LVOT VTI 16.99cmAO Mean GR.2mmHg NILA (VMAX)3.96tw1IAZ (VTI)3.42cm2 AI P 1/2 [id number] Mitral Valve MV E Ojwetvap99.3cm/sMV DECEL [id number] MV A Egjqcuca34.8cm/sMV YPZ42sm E/A Ratio1.0MVA (PHT)4.45cm2 TDI E/Lateral E'8.1E/Medial E'7.1 Pulmonary Valve PV Peak Lebjufvf10.1cm/sPV Peak Grad.4mmHg Tricuspid Valve TR P. Mdzmurnt959pe/sRAP IMSFRMSM9zkGh TR Peak Gr.16btGhCGJS92wqVp Pulmonary Vein S1 Cuzmhdsn26.9cm/sD2 Lzfsgcgb45.8cm/s PVa [id number] LEFT VENTRICLE The left ventricle is normal size. There is normal left ventricular wall thickness. The left ventricu lar systolic function is normal and the ejection fraction is within normal range. The Ejection Fracti on is 50-55%. Septal motion consistent with conduction abnormality. Transmitral Doppler flow pattern is Grade I-abnormal relaxation pattern. RIGHT VENTRICLE The right ventricle is normal size. There is normal right ventricular wall thickness. The right ventr icular systolic function is normal. ATRIA The left atrium size is normal. The right atrium size is normal. The interatrial septum is intact wit h no evidence for an atrial septal defect or patent foramen ovale as noted on 2-D or Doppler imaging. AORTIC VALVE The aortic valve is thickened but opens well. Doppler and Color Flow revealed trace to mild aortic re gurgitation. There is no significant aortic valvular stenosis. Calculated aortic valve area is 4.20 c m2 with maximum pressure gradient of 5 mmHg and mean pressure gradient of 2 mmHg. MITRAL VALVE The mitral valve is normal in structure and function. There is no evidence of mitral valve prolapse. There is no mitral valve stenosis. Doppler and Color-flow revealed trace mitral regurgitation. TRICUSPID VALVE The tricuspid valve is normal in structure and function. Doppler and Color Flow revealed trace tricus pid regurgitation with an estimated PAP of 18 mmHg. There is no tricuspid valve stenosis. PULMONIC VALVE The pulmonic valve is not well visualized. Doppler and Color Flow revealed no pulmonic valvular regur gitation. There is no pulmonic valvular stenosis. GREAT VESSELS The aortic root is normal in size. The IVC was not visualized. PERICARDIAL EFFUSION There is no evidence of significant pericardial effusion. Critical Notification Critical Value: No <Conclusion> The left ventricular systolic function is normal and the ejection fraction is within normal range. Th e Ejection Fraction is 50-55%. Septal motion consistent with conduction abnormality. Signed by : Julius Walters, Electronically Approved : 05/29/2020 15:01:34
== END ==
LOC: ECHO 10:51
PROVIDERS: ATTEND Internal Medicine Cardiovascular Disease
DX: I35.1 Nonrheumatic aortic (valve) insufficiency (principal)
CPT/HCPCS: 93306